=== PATIENT | male | born 1960 | race Hispanic/Latino ===

== ENCOUNTER 2020-12-19 19:20 | Emergency (ER) | payer OTHER ==
[2020-12-19 20:48] LABS: Absolute Lymphocytes (CBC) 1.3 K/uL (0.7-4.9); Basophils % 0.2 % (0-1.3); Hematocrit 43.8 % (39.6-49.0); Lymphocytes % 19.9 % (15.3-44.8); MPV 8.5 fL (7.6-11.3); RBC Red Blood Cell Count 5.02 M/uL (4.33-5.43)
[2020-12-19 20:55] LABS: Protime INR 1.12
[2020-12-19] MEDS ORDERED: NA CHLORIDE 0.9% 1,000 ML ONE (20:59)
[2020-12-19] MEDS ORDERED: ONDANSETRON 4 MG/2 ML VIAL ONE (20:59)
[2020-12-19] MEDS ORDERED: ACETAMINOPHEN 500 MG TAB ONE (20:59)
--- NOTE | 2020-12-19 21:08 | RAD REPORT ---
EXAM DESCRIPTION: RAD - Chest Single View - 12/19/2020 8:58 pm CLINICAL HISTORY: sob, weakness COMPARISON: None TECHNIQUE: AP portable chest image was obtained 12/19/2020 8:58 pm . FINDINGS: Lung volumes are low. Patchy lung parenchymal opacification present medial right base and in the mid and lower left lung field. Heart size and vasculature within normal limits. Trachea is mid line. Bilateral pneumonia is favored and this has a pattern more typical for viral infiltrate. COVID- 19 pneumonia would be a consideration given the clinical environment. No measurable pleural effusion and no pneumothorax. No acute bony abnormality seen. No acute aortic findings suspected. IMPRESSION: Patchy pneumonia changes more pronounced on the left. Viral pneumonia is suspected and COVID-19 pneumonia would be a consideration given the current clinic al environment.
[2020-12-19 21:18] LABS: ALT/SGPT 48 U/L (12-78); AST/SGOT 41 U/L (15-37); Albumin 3.3 g/dL (3.4-5.0); Alkaline Phosphatase 117 U/L (45-117); BUN Blood Urea Nitrogen 9 mg/dL (7-18); Bicarbonate 30 mmol/L (21-32); Bilirubin Direct 0.2 mg/dL (0-0.2); Bilirubin Total 0.4 mg/dL (0.2-1.0); Glucose Level 170 mg/dL (74-106); Magnesium 2.2 mg/dL (1.8-2.4); NT PRO-BNP 260 pg/mL (<125); Protein, Total 8.1 g/dL (6.4-8.2); Sodium Level 134 mmol/L (136-145); Troponin (Emerg Dept Use Only) < 0.02 ng/mL (0.0-0.045)
[2020-12-19] MEDS ORDERED: dexAMETHasone 10 MG/ML VIAL ONE (22:17)
--- NOTE | 2020-12-20 00:03 | ER ---
Nurse's Notes [facility] Name: Simeon Juarez Age: 59 yrs Sex: Male : 1960 Arrival Date: 12/19/2020 Time: 19:21 Bed 7 Private MD: Diagnosis: Coronavirus infection, unspecified Presentation: 12/19 19:21 Chief complaint: Patient states: Coivd + x 2 weeks. Pt reports extreme fatigue x 3 days ss that is worse with exertion. Also c/o intermittent nausea. Coronavirus screen: fatigue, nausea, Client presents with at least one sign or symptom that may indicate coronavirus-19. Standard/surgical mask placed on the client. Ebola Screen: Patient denies exposure to infectious person. Patient denies travel to an Ebola-affected area in the 21 days before illness onset. Initial Sepsis Screen: Does the patient meet any 2 criteria? No. Patient's initial sepsis screen is negative. Does the patient have a suspected source of infection? No. Patient's initial sepsis screen is negative. Risk Assessment: Do you want to hurt yourself or someone else? Patient reports no desire to harm self or others. Onset of symptoms was December 10, 2020. 19:21 Method Of Arrival: EMS: [facility] ss 19:21 Acuity: MED 3 ss Historical: - Allergies: 19:25 No Known Allergies; ss - Home Meds: 19:25 Methadone Oral [Active]; ss - PMHx: 19:25 None; ss - PSHx: 19:25 Appendectomy; ss - Immunization history:: Adult Immunizations unknown. - Social history:: Smoking status: Patient denies any tobacco usage or history of. Screenin:46 Abuse screen: Denies threats or abuse. Denies injuries from another. Nutritional rr5 screening: No deficits noted. Tuberculosis screening: No symptoms or risk factors identified. Fall Risk IV access (20 points). Total Davis Fall Scale indicates No Risk (0-24 pts). Assessment: 20:45 General: Appears in no apparent distress. uncomfortable, Behavior is calm, cooperative, rr5 appropriate for age, Reports feeling ill for fatigue for. Pain: Denies pain. Neuro: Level of Consciousness is awake, alert, obeys commands, Oriented to person, place, time. Cardiovascular: Capillary refill < 3 seconds Patient's skin is warm and dry. Respiratory: Airway is patent Respiratory effort is even, unlabored, Respiratory pattern is regular, symmetrical. GI: No signs and/or symptoms were reported involving the gastrointestinal system. : No signs and/or symptoms were reported regarding the genitourinary system. EENT: No signs and/or symptoms were reported regarding the EENT system. Derm: Skin is intact, is healthy with good turgor, Skin temperature is warm. Musculoskeletal: Circulation, motion, and sensation intact. Capillary refill Reports weakness in body. 22:00 Reassessment: Patient appears in no apparent distress at this time. Patient is alert, rr5 oriented x 3, equal unlabored respirations, skin warm/dry/pink. Patient states feeling better. Patient states symptoms have improved. Vital Signs: 19:21 BP 144 / 94; Pulse 110; Resp 19; Temp 99.5(TE); Pulse Ox 97% on R/A; Weight 95.25 kg; ss Height 6 ft. 10 in. (208.28 cm); Pain 0/10; 22:21 BP 132 / 79; Pulse 76; Resp 16; Pulse Ox 99% ; rr5 23:00 BP 135 / 82; Pulse 81; Resp 17; Pulse Ox 96% on R/A; rv 12/20 00:00 BP 140 / 88; Pulse 85; Resp 18; Pulse Ox 95% on R/A; rv 12/19 19:21 Body Mass Index 21.96 (95.25 kg, 208.28 cm) ED Course: 12/19 19:21 Patient arrived in ED. ss 19:24 Triage completed. ss 19:25 Arm band placed on right wrist. ss 20:00 Patient has correct armband on for positive identification. Placed in gown. Bed in low rr5 position. Call light in reach. school lunch monitor on. Pulse ox on. NIBP on. 20:15 Manny Knapp RN is Primary Nurse. rr5 20:23 Adan Ortiz PA is PHCP. jmm 20:23 Alex Gaona MD is Attending Physician. jmm 20:40 Inserted saline lock: 18 gauge in right antecubital area, using aseptic technique. ds4 Blood collected. 20:57 XRAY Chest (1 view) In Process Unspecified. EDMS 22:45 CT Chest For PE Angio In Process Unspecified. EDMS 12/20 00:13 No provider procedures requiring assistance completed. IV discontinued, intact, rv bleeding controlled, No redness/swelling at site. Pressure dressing applied. Administered Medications: 12/19 20:40 Drug: NS 0.9% 1000 ml Route: IV; Rate: 1 bolus; Site: right antecubital; rr5 12/20 00:15 Follow up: IV Status: Completed infusion; IV Intake: 1000ml rv 12/19 20:45 Drug: Tylenol 1000 mg Route: PO; rr5 12/20 00:15 Follow up: Response: No adverse reaction rv 12/19 20:45 Drug: Zofran (Ondansetron) 4 mg Route: IVP; Site: right antecubital; rr5 12/20 00:15 Follow up: Response: No adverse reaction rv 12/19 22:07 Drug: Decadron - Dexamethasone 10 mg Route: IVP; Site: right antecubital; rr5 12/20 00:15 Follow up: Response: No adverse reaction rv Intake: 00:15 IV: 1000ml; Total: 1000ml. rv Outcome: 00:02 Discharge ordered by MD. avila 00:13 Discharged to home ambulatory. rv 00:13 Condition: good 00:13 Discharge instructions given to patient, Instructed on discharge instructions, follow up and referral plans. medication usage, Demonstrated understanding of instructions, follow-up care, medications, Prescriptions given X 3. 00:15 Patient left the ED. rv Signatures: Dispatcher [employer] EDIA Adan Ortiz PA PA Samra Ann RN RN Blair Enriquez ds4 Jared Borja RN RN Manny Knapp RN RN rr5
--- NOTE | 2020-12-20 00:04 | EDPHYS ---
Physician Documentation [facility] Name: Simeon Juarez Age: 59 yrs Sex: Male : 1960 Arrival Date: 12/19/2020 Time: 19:21 Bed 7 Private MD: ED Physician Alex Gaona HPI: 12/19 20:34 This 59 yrs old Male presents to ER via EMS with complaints of Fatigue, COVID jmm +. 20:34 The patient has shortness of breath at rest. Onset: The symptoms/episode began/occurred jm gradually, 2 week(s) ago. Duration: The symptoms are continuous. The patient's shortness of breath is aggravated by exertion, light activity. Associated signs and symptoms: Pertinent positives: productive cough, Pertinent negatives:. This is a 59 year old male with no chronic medical conditions that presents to the ED with complaints of shortness of breath and increased fatigue today. . Historical: - Allergies: 19:25 No Known Allergies; ss - Home Meds: 19:25 Methadone Oral [Active]; ss - PMHx: 19:25 None; ss - PSHx: 19:25 Appendectomy; ss - Immunization history:: Adult Immunizations unknown. - Social history:: Smoking status: Patient denies any tobacco usage or history of. ROS: 20:34 Constitutional: Positive for body aches, fever. [facility] 20:34 Respiratory: Positive for shortness of breath. 20:34 Neuro: Positive for weakness. 20:34 All other systems are negative. Exam: 20:34 Constitutional: This is a well developed, well nourished patient who is awake, alert, jmm and in no acute distress. Head/Face: atraumatic. Eyes: EOMI, no conjunctival erythema appreciated ENT: Moist Mucus Membranes Neck: Trachea midline, Supple Chest/axilla: Normal chest wall appearance and motion. Cardiovascular: Regular rate and rhythm. No edema appreciated Respiratory: Normal respirations, no respiratory distress appreciated Abdomen/GI: Non distended, soft Back: Normal ROM Skin: General appearance color normal MS/ Extremity: Moves all extremities, no obvious deformities appreciated, no edema noted to the lower extremities Neuro: Awake and alert, normal gait Psych: Behavior is normal, Mood is normal, Patient is cooperative and pleasant 20:43 ECG was reviewed by the Attending Physician. [facility] Vital Signs: 19:21 BP 144 / 94; Pulse 110; Resp 19; Temp 99.5(TE); Pulse Ox 97% on R/A; Weight 95.25 kg; ss Height 6 ft. 10 in. (208.28 cm); Pain 0/10; 22:21 BP 132 / 79; Pulse 76; Resp 16; Pulse Ox 99% ; rr5 23:00 BP 135 / 82; Pulse 81; Resp 17; Pulse Ox 96% on R/A; rv 12/20 00:00 BP 140 / 88; Pulse 85; Resp 18; Pulse Ox 95% on R/A; rv 12/19 19:21 Body Mass Index 21.96 (95.25 kg, 208.28 cm) ss MDM: 12/19 20:34 Patient medically screened. [facility] 23:58 Data reviewed: vital signs, nurses notes. Counseling: I had a detailed discussion with austin the patient and/or guardian regarding: the historical points, exam findings, and any diagnostic results supporting the discharge/admit diagnosis, lab results, radiology results, the need for outpatient follow up, to return to the emergency department if symptoms worsen or persist or if there are any questions or concerns that arise at home. ED course: Patient is alert and non toxic in appearance in the ED. No signs of resp distress. Patient is advised to follow up with pcp and otherwise given strict return precautions. Patient understood and agrees with the plan of care. . 12/19 20:35 Order name: Basic Metabolic Panel [facility] 12/19 20:35 Order name: CBC with Diff [facility] 12/19 20:35 Order name: LFT's [facility] 12/19 20:35 Order name: Magnesium [facility] 12/19 20:35 Order name: NT PRO-BNP [facility] 12/19 20:35 Order name: PT-INR [facility] 12/19 20:35 Order name: Troponin (emerg Dept Use Only); Complete Time: 21:49 [facility] 12/19 20:35 Order name: D-Dimer; Complete Time: 21:12 [facility] 12/19 20:35 Order name: CRP; Complete Time: 21:49 [facility] 12/19 20:36 Order name: Basic Metabolic Panel; Complete Time: 21:49 [facility] 12/19 20:36 Order name: CBC with Automated Diff; Complete Time: 21:12 [facility] 12/19 20:36 Order name: Liver (Hepatic) Function; Complete Time: 21:49 [facility] 12/19 20:36 Order name: Magnesium; Complete Time: 21:49 [facility] 12/19 20:36 Order name: NT PRO-BNP; Complete Time: 21:49 [facility] 12/19 20:35 Order name: XRAY Chest (1 view); Complete Time: 21:12 [facility] 12/19 20:35 Order name: EKG; Complete Time: 20:37 [facility] 12/19 20:35 Order name: Cardiac monitoring; Complete Time: 20:44 [facility] 12/19 20:35 Order name: EKG - Nurse/Tech; Complete Time: 20:44 [facility] 12/19 20:35 Order name: IV Saline Lock; Complete Time: 20:44 [facility] 12/19 20:35 Order name: Labs collected and sent; Complete Time: 20:44 [facility] 12/19 20:35 Order name: O2 Per Protocol; Complete Time: 20:44 [facility] 12/19 20:35 Order name: O2 Sat Monitoring; Complete Time: 20:44 [facility] 12/19 20:36 Order name: Protime (+INR); Complete Time: 21:12 [facility] 12/19 21:52 Order name: CT Chest For PE Angio jmm EC:43 Rate is 97 beats/min. Rhythm is regular. QRS [place] is Normal. MT interval is normal. QRS jmm interval is normal. QT interval is normal. No Q waves. T waves are Normal. No ST changes noted. Reviewed by me. Administered Medications: 20:40 Drug: NS 0.9% 1000 ml Route: IV; Rate: 1 bolus; Site: right antecubital; rr5 12/20 00:15 Follow up: IV Status: Completed infusion; IV Intake: 1000ml rv 12/19 20:45 Drug: Tylenol 1000 mg Route: PO; rr5 12/20 00:15 Follow up: Response: No adverse reaction rv 12/19 20:45 Drug: Zofran (Ondansetron) 4 mg Route: IVP; Site: right antecubital; rr5 12/20 00:15 Follow up: Response: No adverse reaction rv 12/19 22:07 Drug: Decadron - Dexamethasone 10 mg Route: IVP; Site: right antecubital; rr5 12/20 00:15 Follow up: Response: No adverse reaction rv Disposition: 03:50 Co-signature as Attending Physician, Alex Gaona MD. [email or web address] Disposition: 12/20/20 00:02 Discharged to Home. Impression: Coronavirus infection, unspecified. - Condition is Stable. - Discharge Instructions: COVID-19. - Prescriptions for ivermectin 3 mg Oral tablet - take 6 tablet by ORAL route as directed One dose on day one and one dose on day 3; 12 tablet. Prednisone 20 mg Oral Tablet - take 3 tablet by ORAL route once daily for 5 days; 15 tablet. Albuterol Sulfate 90 mcg/actuation - inhale 1-2 puff by INHALATION route every 4-6 hours; 1 Inhaler. Zofran ODT 4 mg Oral tablet,disintegrating - place 1 tablet by TRANSLINGUAL route every 4-6 hours; 20 tablet. - Medication Reconciliation Form, Thank You Letter, Antibiotic Education, Prescription Opioid Use form. - Follow up: Private Physician; When: 2 - 3 days; Reason: Recheck today's complaints, Continuance of care, Re-evaluation by your physician. Signatures: Dispatcher [employer] EDMS Adan Ortiz PA PA Samra Ann RN RN ss Jared Borja RN RN rv Roque, Raymond, RN RN 5 Alex Gaona MD MD 7 Corrections: (The following items were deleted from the chart) 00:15 00:02 12/20/2020 00:02 Discharged to Home. Impression: Coronavirus infection, rv unspecified. Condition is Stable. Forms are Medication Reconciliation Form, Thank You Letter, Antibiotic Education, Prescription Opioid Use. Follow up: Private Physician; When: 2 - 3 days; Reason: Recheck today's complaints, Continuance of care, Re-evaluation by your physician. [facility] 00:15 00:15 12/20/2020 00:02 Discharged to Home. Impression: Coronavirus infection, rv unspecified. Condition is Stable. Discharge Instructions: COVID-19. Prescriptions for ivermectin 3 mg Oral tablet - take 6 tablet by ORAL route as directed One dose on day one and one dose on day 3; 12 tablet, Prednisone 20 mg Oral Tablet - take 3 tablet by ORAL route once daily for 5 days; 15 tablet, Albuterol Sulfate 90 mcg/actuation - inhale 1-2 puff by INHALATION route every 4-6 hours; 1 Inhaler, Zofran ODT 4 mg Oral tablet,disintegrating - place 1 tablet by TRANSLINGUAL route every 4-6 hours; 20 tablet. and Forms are Medication Reconciliation Form, Thank You Letter, Antibiotic Education, Prescription Opioid Use. Follow up: Private Physician; When: 2 - 3 days; Reason: Recheck today's complaints, Continuance of care, Re-evaluation by your physician. rv
[2020-12-20 01:08] VITALS: TEMP 99.5
[2020-12-20 01:12] VITALS: BP 140/88; O2SAT 95
--- NOTE | 2020-12-20 11:27 | RAD REPORT ---
EXAM DESCRIPTION: CT CHEST ANGIOGRAPHY WITH IV CONTRAST on 12/19/2020 9:52 PM FOREST NURSERY SUPERVISOR CLINICAL HISTORY: Sob, elevated d-dimer COMPARISON: None. TECHNIQUE: CT CHEST ANGIOGRAPHY WITH IV CONTRAST on 12/19/2020 9:52 PM FOREST NURSERY SUPERVISOR. MIPS reconstructions were generated. This exam was performed according to our departmental dose-optimization program, which includes autom ated exposure control, adjustment of the mA and/or kV according to patient size and/or use of iterati ve reconstruction technique. MIP images were generated. FINDINGS: Thoracic aorta is normal in course and caliber without aneurysm or dissection. Pulmonary a rteries are adequately opacified without acute or chronic filling defects. The heart is normal in size. There is no pericardial effusion. Intrathoracic lymph nodes are not enla rged. There is no pleural effusion, pleural thickening or pneumothorax. Central airways are patent. There a re mild to moderate mostly posterior mid and lower lung groundglass opacities. There are no acute abnormalities within the limited images of the upper abdomen. There are no acute osseous findings. No suspicious bony lesions. IMPRESSION: No aortic dissection or aneurysm. No pulmonary embolus. Commonly reported imaging features of viral pneumonia are present. Other processes such as influenza pneumonia and organizing pneumonia, as can be seen with drug toxicity and connective tissue disease, can cause similar imaging pattern. PneTyp Electronically signed by: Phu Al MD 12/19/2020 11:05 PM FOREST NURSERY SUPERVISOR Due to temporary technical issues with the PACS/Fluency reporting system, reports are being signed by the in house radiologist without review as a courtesy to ensure prompt reporting. The interpreting r adiologist is fully responsible for the content of the report.
== END 2020-12-20 00:15 | disposition home or self-care (01) ==
LOC: ER 19:20
DX: U07.1 COVID-19 (principal); R53.83 Other fatigue
CPT/HCPCS: 96361; 85025; 80048; 36415; 83735; 85610; 85379; 80076; 84484; 83880; 86140; 71275; 71045; 96375; 96374; 99285; Q9967; J1100; J7030; J2405

== ENCOUNTER 2023-01-03 19:14 | Emergency (ER) | payer OTHER ==
--- OUTSIDE RECORDS SUMMARY | 2023-01-03 19:17 | XMS REPORT | Continuity of Care Document ---
:1960 Author Organization [facility] t Address [address] [place] [address] [address] [place] [address] Care Team Providers Name Role Phone AIDE Attending Clinician Unavailable AIDE Admitting Clinician Unavailable Problems This patient has no known problems. Allergies, Adverse Reactions, Alerts This patient has no known allergies or adverse reactions. Medications This patient has no known medications. Procedures This patient has no known procedures. Encounters Start End Encounter Admission Attending Care Care Encounter Source Date/Time Date/Time Type Type Clinicians Facility Department ID 2022-05-10 2022-05-10 Outpatient CHAIM JASSO [id number] [place] 11:00:00 11:00:00 [id number] Program Results This patient has no known results.
[2023-01-03] MEDS ORDERED: ONDANSETRON 4 MG/2 ML VIAL ONE (20:23)
[2023-01-03] MEDS ORDERED: NA CHLORIDE 0.9% 1,000 ML ONE (20:23)
[2023-01-03] MEDS ORDERED: FAMOTIDINE 20 MG/2 ML VIAL IV ONE (20:31)
[2023-01-03 20:32] LABS: Hematocrit 42.3 % (39.6-49.0); MCV 89.3 fL (80-100); MPV 7.7 fL (7.6-11.3); RBC Red Blood Cell Count 4.74 M/uL (4.33-5.43)
[2023-01-03 20:50] LABS: Albumin 3.6 g/dL (3.4-5.0); Bilirubin Total 0.6 mg/dL (0.2-1.0); Potassium 3.6 mmol/L (3.5-5.1); Protein, Total 7.5 g/dL (6.4-8.2); Troponin High Sensitivity 6.1 pg/mL (<58.9)
[2023-01-03 21:04] LABS: Urine Blood Negative (Negative); Urine Glucose Negative (Negative); Urine Protein Negative (Negative); Urine Specific Gravity <=1.005 (1.005-1.030); Urine pH 5.5 (5.0-7.0)
[2023-01-03 21:20] LABS: Urine Blood Negative (Negative); Urine Glucose Negative (Negative); Urine Protein Negative (Negative); Urine Specific Gravity <=1.005 (1.005-1.030); Urine pH 5.5 (5.0-7.0)
--- NOTE | 2023-01-03 21:36 | RAD REPORT ---
EXAM DESCRIPTION: CT - Abdomen Pelvis W Contrast - 01/03/2023 9:13 pm CLINICAL HISTORY: ABD PAIN COMPARISON: No comparisons TECHNIQUE: Thin cut axial CT imaging of the abdomen and pelvis was performed following intravenous a dministration of 90 mL Isovue 300. Multiplanar reformats were generated and reviewed. All CT scans are performed using dose optimization technique as appropriate and may include automated exposure control or mA/KV adjustment according to patient size. FINDINGS: No suspicious findings in the lung bases. The liver, spleen, adrenal glands, and pancreas show no suspicious findings. Gallbladder is moderatel y distended, without mucosal hyperenhancement, wall thickening, or pericholecystic fluid. The common bile duct is prominent, measuring 1 centimeter in caliber, a nonspecific finding. Symmetric renal function is seen with no hydronephrosis or suspicious renal mass. No dilated bowel loops or bowel wall thickening. No free air, free fluid or inflammatory stranding. N o hernia, mass or bulky lymphadenopathy. The urinary bladder is without significant finding. No suspicious bony findings. IMPRESSION: Moderate gallbladder distention without inflammatory changes on CT. Common bile duct is prominent, measuring 1 centimeter in caliber, a nonspecific finding. Please correlate clinically, and with patient's bilirubin levels. No other acute abnormalities in the abdomen and pelvis.
[2023-01-03] MEDS ORDERED: KETOROLAC 30 MG/ML INJ ONE (21:39)
[2023-01-03 21:42] LABS: Urine Bacteria None Seen /HPF (<20); Urine RBC <5 /HPF (None Seen)
--- NOTE | 2023-01-03 22:42 | RAD REPORT ---
EXAM DESCRIPTION: US - Abdomen Exam Limited - 01/03/2023 10:17 pm CLINICAL HISTORY: NAUSEA / VOMITING COMPARISON: Abdomen Pelvis W Contrast dated 01/03/2023 TECHNIQUE: Sonographic grayscale and color flow images of the right upper quadrant were obtained. FINDINGS: The gallbladder demonstrates moderate distention. No gallstones. No pericholecystic fluid or gallbladder wall thickening. The common bile duct is dilated, measuring 1 centimeter, without evid ence of choledocholithiasis along the visualized segments. The liver demonstrates no findings of intrahepatic biliary dilatation. IMPRESSION: Moderately distended gallbladder, without sonographic findings to suggest acute cholecys titis. No cholelithiasis. Dilated common bile duct, 1 centimeter in caliber.
[2023-01-03 22:53] LABS: SARS-COV-2 RT PCR NEGATIVE (NEGATIVE)
[2023-01-04 00:25] VITALS: TEMP 99.9
[2023-01-04 00:27] VITALS: O2SAT 100
[2023-01-04 00:29] VITALS: BP 124/75
--- NOTE | 2023-01-04 16:21 | EKG ---
Test Date: 2023-01-03 Test Time: 20:28:23 Electronic Components Assembler: LUCHO MEASUREMENT RESULTS: Intervals: Rate: 99 WY: 154 QRSD: 90 QT: 342 QTc: 438 [place]: P: 33 WY: 154 QRS: 25 T: 68 INTERPRETIVE STATEMENTS: Normal sinus rhythm Nonspecific T wave abnormality Abnormal ECG Compared to ECG 08/30/2022 20:50:58 T-wave abnormality now present ST (T wave) deviation no longer present Possible ischemia no longer present Electronically Signed On 01-04-23 16:19:33 CAMPUS RECEPTIONIST by Xavier Costa
--- NOTE | 2023-01-19 15:17 | ER ---
Nurse's Notes [facility] Name: Simeon Juarez Age: 62 yrs Sex: Male : 1960 Arrival Date: 01/03/2023 Time: 19:16 Bed 12 Private MD: Diagnosis: Nausea with vomiting, unspecified;Diarrhea, unspecified Presentation: 01/03 19:15 Chief complaint: EMS states: N/V/D and joint pain started yesterday, last vomited at eh3 noon today, EMS gave 4mg Zofran, 1000mg Tylenol, and 500mL NS en route to hospital. Coronavirus screen: Vaccine status: Patient reports receiving the 2nd dose of the covid vaccine. Ebola Screen: No symptoms or risks identified at this time. Initial Sepsis Screen: Does the patient meet any 2 criteria? HR > 90 bpm. Does the patient have a suspected source of infection? No. Patient's initial sepsis screen is negative. Risk Assessment: Do you want to hurt yourself or someone else? Patient reports no desire to harm self or others. Onset of symptoms was January 04, 2023. 19:15 Method Of Arrival: EMS: [facility] 19:15 Acuity: MED 3 eh3 Triage Assessment: 19:15 General: Appears in no apparent distress. uncomfortable, Behavior is calm, cooperative, eh3 appropriate for age. Pain: Complains of pain in generalized in joints. Historical: - Allergies: 19:56 No Known Allergies; eh3 - Home Meds: 19:56 Methadone Oral [Active]; Lisinopril Oral [Active]; eh3 - PMHx: 19:56 Hypertensive disorder; eh3 - PSHx: 19:56 Appendectomy; eh3 - Immunization history:: Adult Immunizations up to date, Flu vaccine is not up to date. It has been more than one year since last vaccine. - Social history:: Smoking status: unknown. Screenin:15 [facility] ED Fall Risk Assessment (Adult) Score/Fall Risk Level 0 - 2 = Low Risk. Abuse eh3 screen: Denies threats or abuse. Denies injuries from another. Nutritional screening: No deficits noted. Tuberculosis screening: No symptoms or risk factors identified. Assessment: 19:15 Reassessment: No changes from previously documented assessment. See triage assessment. eh3 20:15 Reassessment: Patient appears in no apparent distress at this time. Patient and/or 3 family updated on plan of care and expected duration. Pain level reassessed. Patient is alert, oriented x 3, equal unlabored respirations, skin warm/dry/pink. 21:15 Reassessment: Patient appears in no apparent distress at this time. Patient and/or 3 family updated on plan of care and expected duration. Pain level reassessed. Patient is alert, oriented x 3, equal unlabored respirations, skin warm/dry/pink. 22:15 Reassessment: Patient appears in no apparent distress at this time. Patient and/or 3 family updated on plan of care and expected duration. Pain level reassessed. Patient is alert, oriented x 3, equal unlabored respirations, skin warm/dry/pink. 23:15 Reassessment: Patient appears in no apparent distress at this time. Patient and/or 3 family updated on plan of care and expected duration. Pain level reassessed. Patient is alert, oriented x 3, equal unlabored respirations, skin warm/dry/pink. Patient states feeling better. Vital Signs: 19:15 BP 140 / 90; Pulse 120; Resp 20; Temp 99.9(O); Pulse Ox 99% on R/A; Weight 90.72 kg; 3 Height 5 ft. 11 in. ; 20:15 BP 126 / 70; Pulse 109; Resp 20; Pulse Ox 99% on R/A; 3 21:15 BP 121 / 66; Pulse 101; Resp 18; Pulse Ox 100% on R/A; 3 22:15 BP 124 / 75; Pulse 100; Resp 18; Pulse Ox 100% on R/A; 3 19:15 Body Mass Index 27.89 (90.72 kg, 180.34 cm) [facility] ED Course: 19:15 Arm band placed on. 3 19:15 Patient has correct armband on for positive identification. Bed in low position. Call [facility] light in reach. Side rails up X2. Client placed on continuous cardiac and pulse oximetry monitoring. NIBP monitoring applied. Door closed. Noise minimized. 19:15 Maintain EMS IV. Dressing intact. Good blood return noted. Site clean \T\ dry. Gauge \T\ 3 site: 18g RAC. 19:16 Patient arrived in ED. rv1 19:17 Ignacio Park PA is PHCP. cp 19:17 Ernesto Su MD is Attending Physician. cp 19:53 Yeny Chavez, RN is Primary Nurse. eh3 19:56 Triage completed. eh3 21:14 CT Abd/Pelvis - IV Contrast Only In Process Unspecified. EDMS 21:55 COVID-19/FLU A+B Sent. eh3 22:19 US Abdomen Limited: gallbladder In Process Unspecified. EDMS 23:54 No provider procedures requiring assistance completed. IV discontinued, intact, vc1 bleeding controlled, No redness/swelling at site. Pressure dressing applied. Administered Medications: 20:23 Drug: NS 0.9% IV 1000 ml Route: IV; Rate: 1 bolus; Site: right antecubital; eh3 21:17 Follow up: IV Status: Completed infusion; IV Intake: 1000ml eh3 20:23 Drug: Ondansetron IVP 4 mg Route: IVP; Site: right antecubital; eh3 21:17 Follow up: Response: Nausea is decreased eh3 20:35 Drug: Famotidine IVP 20 mg Route: IVP; Site: right antecubital; eh3 21:17 Follow up: Response: No adverse reaction eh3 21:45 Drug: Ketorolac IVP 15 mg Route: IVP; Site: right antecubital; eh3 22:19 Follow up: Response: Pain is decreased eh3 Medication: 23:54 VIS not applicable for this client. vc1 Intake: 21:17 IV: 1000ml; Total: 1000ml. eh3 Outcome: 23:34 Discharge ordered by MD. cp 23:54 Discharged to home ambulatory. vc1 23:54 Condition: good 23:54 Discharge instructions given to patient, Instructed on discharge instructions, follow up and referral plans. medication usage, Demonstrated understanding of instructions, follow-up care, medications, Prescriptions given X 1. 23:54 Patient left the ED. vc1 Signatures: Dispatcher [employer] EDOH Ignacio Park PA PA cp Imelda Melendez RN RN vc1 Yeny Chavez RN RN eh3 Mckenzie Gonzalez rv1 Corrections: (The following items were deleted from the chart) 19:58 19:56 Immunization history: Adult Immunizations up to date, Flu vaccine is not up to eh3 date. It has been more than one year since last vaccine. eh3 19:58 19:56 Social history: Smoking status: unknown 3 3 21:17 21:16 Famotidine IVP 20 mg IVP in right antecubital 3 3 23:24 23:15 Reassessment: Patient appears in no apparent distress at this time. Patient 3 and/or family updated on plan of care and expected duration. Pain level reassessed. Patient is alert, oriented x 3, equal unlabored respirations, skin warm/dry/pink. [facility]
--- NOTE | 2023-01-19 15:17 | EDPHYS ---
Physician Documentation [facility] Name: Simeon Juarez Age: 62 yrs Sex: Male : 1960 Arrival Date: 01/03/2023 Time: 19:16 Bed 12 Private MD: ED Physician Ernesto Su HPI: 01/03 19:40 This 62 yrs old Male presents to ER via EMS with complaints of cp Nausea/Vomiting/Diarrhea. 19:40 The patient presents to the emergency department with nausea, that is moderate, cp vomiting, that is intermittent, diarrhea, that is intermittent. Onset: The symptoms/episode began/occurred yesterday. Possible causes: unknown. Associated signs and symptoms: Pertinent positives: anorexia, joint pain, body aches, Pertinent negatives: abdominal pain, constipation, fever, GI bleeding, chest pain. Severity of symptoms: in the emergency department the symptoms are unchanged despite home interventions. Historical: - Allergies: 19:56 No Known Allergies; eh3 - Home Meds: 19:56 Methadone Oral [Active]; Lisinopril Oral [Active]; eh3 - PMHx: 19:56 Hypertensive disorder; eh3 - PSHx: 19:56 Appendectomy; eh3 - Immunization history:: Adult Immunizations up to date, Flu vaccine is not up to date. It has been more than one year since last vaccine. - Social history:: Smoking status: unknown. ROS: 19:45 Constitutional: Positive for body aches, chills, poor PO intake, Negative for fever. cp 19:45 Eyes: Negative for injury, pain, redness, and discharge. cp 19:45 ENT: Negative for drainage from ear(s), ear pain, sore throat, difficulty swallowing, difficulty handling secretions. 19:45 Cardiovascular: Negative for chest pain, palpitations. 19:45 Respiratory: Negative for cough, shortness of breath, wheezing. 19:45 Abdomen/GI: Positive for abdominal pain, nausea, vomiting, diarrhea, constipation. 19:45 : Negative for urinary symptoms, testicular pain 19:45 Neuro: Negative for altered mental status, headache, syncope. 19:45 All other systems are negative. Exam: 19:50 Constitutional: The patient appears in no acute distress, alert, awake, cp non-diaphoretic, non-toxic, well developed, well nourished. 19:50 Head/Face: Normocephalic, atraumatic. cp 19:50 Eyes: Periorbital structures: appear normal, Pupils: equal, round, and reactive to light and accomodation, Extraocular movements: intact throughout, Conjunctiva: normal, no exudate, no injection, Sclera: no appreciated abnormality, Lids and lashes: appear normal, bilaterally. 19:50 ENT: External ear(s): are unremarkable, Ear canal(s): are normal, clear, TM's: dullness, bilaterally, Nose: is normal, Mouth: Lips: moist, Oral mucosa: moist, Posterior pharynx: is normal, airway is patent, no erythema, no exudate. 19:50 Neck: ROM/movement: is normal, is supple, without pain, no range of motions limitations, no nuchal rigidity. 19:50 Chest/axilla: Inspection: normal. 19:50 Cardiovascular: Rate: tachycardic, Rhythm: regular. 19:50 Respiratory: the patient does not display signs of respiratory distress, Respirations: normal, no use of accessory muscles, no retractions, labored breathing, is not present, Breath sounds: are clear throughout, no decreased breath sounds, no stridor, no wheezing. 19:50 Abdomen/GI: Inspection: abdomen appears normal, Bowel sounds: active, all quadrants, Palpation: soft, in all quadrants, mild abdominal tenderness, in the epigastric area, right upper quadrant and left upper quadrant, rebound tenderness, is not appreciated, involuntary guarding, is not appreciated. 19:50 Back: CVA tenderness, is absent. 19:50 Neuro: Orientation: to person, place \T\ time. Mentation: is normal, Motor: moves all fours, strength is normal, Sensation: is normal. 20:35 ECG was reviewed by the Attending Physician. cp Vital Signs: 19:15 BP 140 / 90; Pulse 120; Resp 20; Temp 99.9(O); Pulse Ox 99% on R/A; Weight 90.72 kg; eh3 Height 5 ft. 11 in. ; 20:15 BP 126 / 70; Pulse 109; Resp 20; Pulse Ox 99% on R/A; eh3 21:15 BP 121 / 66; Pulse 101; Resp 18; Pulse Ox 100% on R/A; eh3 22:15 BP 124 / 75; Pulse 100; Resp 18; Pulse Ox 100% on R/A; eh3 19:15 Body Mass Index 27.89 (90.72 kg, 180.34 cm) eh3 MDM: 19:21 Patient medically screened. cp 20:00 Differential diagnosis: gastritis, cholecystitis, pancreatitis, diverticulitis, viral cp gastroenteritis, gastroenteritis. 23:33 Data reviewed: vital signs, nurses notes, lab test result(s), EKG, radiologic studies, cp CT scan, plain films. 23:33 Consideration of Admission/Observation Escalation of care including cp admission/observation considered. I considered the following discharge prescriptions or medication management in the emergency department Medications were administered in the Emergency Department. See MAR. Test considered but Not performed: CT: chest. Care significantly affected by the following chronic conditions: Hypertension. Counseling: I had a detailed discussion with the patient and/or guardian regarding: the historical points, exam findings, and any diagnostic results supporting the discharge/admit diagnosis, lab results, radiology results, the need for outpatient follow up, a family practitioner, to return to the emergency department if symptoms worsen or persist or if there are any questions or concerns that arise at home. Response to treatment: the patient's symptoms have markedly improved after treatment, patient is well hydrated. Patient reports nausea markedly improved and is tolerating po fluids. 01/03 19:37 Order name: CBC with Diff; Complete Time: 21:25 cp 01/03 22:13 Interpretation: Normal except: JUNE% 83.8; LYM% 10.0; NEUT A 8.4. cp 01/03 19:37 Order name: CMP; Complete Time: 21:25 cp 01/03 22:14 Interpretation: Normal except: NA 134; GLUC 127; GFR 85; AST 13; GLOB 3.9; A/G 0.9. cp 01/03 19:37 Order name: Lipase; Complete Time: 21:25 cp 01/03 19:37 Order name: Urine Microscopic Only; Complete Time: 22:13 cp 01/03 22:13 Interpretation: Reviewed. cp 01/03 19:37 Order name: Troponin HS; Complete Time: 21:25 cp 01/03 21:05 Order name: Urine Dipstick-Ancillary; Complete Time: 21:25 EDMS 01/03 21:20 Order name: Urine Dipstick-Ancillary; Complete Time: 21:25 EDMS 01/03 21:27 Order name: COVID-19/FLU A+B; Complete Time: 22:55 cp 01/03 20:09 Order name: CT Abd/Pelvis - IV Contrast Only; Complete Time: 21:38 cp 01/03 21:38 Interpretation: Report reviewed. cp 01/03 21:39 Order name: US Abdomen Limited: gallbladder; Complete Time: 22:53 cp 01/03 19:37 Order name: EKG; Complete Time: 19:38 cp 01/03 19:37 Order name: IV Saline Lock; Complete Time: 20:00 cp 01/03 19:37 Order name: Labs collected and sent; Complete Time: 20:23 cp 01/03 19:37 Order name: Urine Dipstick-Ancillary (obtain specimen); Complete Time: 20:23 cp 01/03 19:37 Order name: EKG - Nurse/Tech; Complete Time: 20:23 cp 01/03 21:39 Order name: NPO; Complete Time: 21:41 cp 01/03 23:10 Order name: PO challenge; Complete Time: 23:47 cp EC:35 Rate is 99 beats/min. Rhythm is regular. HI interval is normal. QRS interval is normal. cp QT interval is normal. T waves are Inverted in lead aVR. Interpreted by me. Reviewed by me. Administered Medications: 20:23 Drug: NS 0.9% IV 1000 ml Route: IV; Rate: 1 bolus; Site: right antecubital; eh3 21:17 Follow up: IV Status: Completed infusion; IV Intake: 1000ml eh3 20:23 Drug: Ondansetron IVP 4 mg Route: IVP; Site: right antecubital; eh3 21:17 Follow up: Response: Nausea is decreased eh3 20:35 Drug: Famotidine IVP 20 mg Route: IVP; Site: right antecubital; eh3 21:17 Follow up: Response: No adverse reaction eh3 21:45 Drug: Ketorolac IVP 15 mg Route: IVP; Site: right antecubital; eh3 22:19 Follow up: Response: Pain is decreased eh3 Disposition Summary: 01/03/23 23:34 Discharge Ordered Location: Home cp Problem: new cp Symptoms: have improved cp Condition: Stable cp Diagnosis - Nausea with vomiting, unspecified cp - Diarrhea, unspecified cp Followup: cp - With: Private Physician - When: 2 - 3 days - Reason: Recheck today's complaints Discharge Instructions: - Discharge Summary Sheet cp - Diarrhea, Adult cp - Nausea and Vomiting, Adult cp Forms: - Medication Reconciliation Form cp - Thank You Letter cp - Antibiotic Education cp - Prescription Opioid Use cp Prescriptions: - Zofran 4 mg Oral Tablet - take 1 tablet by ORAL route every 12 hours As needed; 20 tablet; Refills: 0, cp Product Selection Permitted Signatures: Dispatcher [employer] EDMS Ignacio Park PA PA cp Hall, Erin RN RN [facility] Corrections: (The following items were deleted from the chart) :58 19:56 Immunization history: Adult Immunizations up to date, Flu vaccine is not up to [facility] date. It has been more than one year since last vaccine. [facility] 58 19:56 Social history: Smoking status: unknown [place] [id number] 01/04 23:30 03/08 19:40 Associated signs and symptoms: Pertinent positives: anorexia, Pertinent cp negatives: abdominal pain, constipation, fever, GI bleeding, chest pain, cp
== END 2023-01-03 23:54 | disposition home or self-care (01) ==
LOC: ER 19:14
DX: R11.2 Nausea with vomiting, unspecified (principal); R19.7 Diarrhea, unspecified; R10.9 Unspecified abdominal pain; Z20.822 Contact with and (suspected) exposure to COVID-19; I10 Essential (primary) hypertension
CPT/HCPCS: 96361; 93005; 85025; 36415; 84484; 83690; 80053; 0240U; 74177; 76705; 96375; 96374; 99284; Q9967; J2405; J7030; 81003; 81015

== ENCOUNTER 2023-07-16 12:54 | Emergency (ER) | payer OTHER, SELFPAY ==
--- OUTSIDE RECORDS SUMMARY | 2023-07-16 12:56 | XMS REPORT | Continuity of Care Document ---
:1960 Author Organization [facility] t Address [address] [place] [id number] Care Team Providers Name Role Phone AIDE [...] Department ID 2022-05-10 2022-05-10 Outpatient CHAIM JASSO PAANGELINA [id number] [place] 11:00:00 11:00:00 HN [id number] da [facility] Program Results This patient has no known results.
[2023-07-16] MEDS ORDERED: NA CHLORIDE 0.9% 1,000 ML ONE (13:24)
[2023-07-16 13:35] LABS: Absolute Lymphocytes (CBC) 2.4 K/uL (0.7-4.9); Hematocrit 41.5 % (39.6-49.0); Lymphocytes % 19.6 % (15.3-44.8); MCV 89.1 fL (80-100); MPV 8.2 fL (7.6-11.3); Platelets 173 thou/uL (152-406); RBC Red Blood Cell Count 4.66 M/uL (4.33-5.43)
[2023-07-16 13:41] LABS: Barbiturates NEGATIVE (NEGATIVE); Benzodiazepines NEGATIVE (NEGATIVE); Cocaine NEGATIVE (NEGATIVE); METHAMPHETAM NEGATIVE (NEGATIVE); Methadone POSITIVE (NEGATIVE); Opiates NEGATIVE (NEGATIVE); Phencyclidine NEGATIVE (NEGATIVE); THC Cannibis NEGATIVE (NEGATIVE)
[2023-07-16 13:53] LABS: Albumin 3.8 g/dL (3.4-5.0); Bilirubin Direct 0.1 mg/dL (0-0.2); Bilirubin Indirect, Calculated 0.4 mg/dL (0.2-0.8); Bilirubin Total 0.5 mg/dL (0.2-1.0); Magnesium 1.6 mg/dL (1.6-2.4); Potassium 2.9 mEq/L (3.5-5.1); Troponin High Sensitivity 12.1 pg/mL (<58.9)
[2023-07-16] MEDS ORDERED: POTASSIUM 25 MEQ EFFERV TAB ONE (14:35)
[2023-07-16] MEDS ORDERED: KCL 20 MEQ/100 mL IVPB 100 ML IV ONE (14:36)
--- NOTE | 2023-07-16 15:16 | RAD REPORT ---
EXAM DESCRIPTION: RADChest Single View07/16/2023 2:09 pm CLINICAL HISTORY: CHEST PAIN COMPARISON: Chest Single View dated 12/19/2020 TECHNIQUE: Portable AP view of the chest. FINDINGS: The lungs are clear. No pneumothorax or effusion. The cardiomediastinal contours are unre markable. IMPRESSION: No acute cardiopulmonary process.
[2023-07-16] MEDS ORDERED: PROMETHAZINE INJ 25 MG/ML AMP ONE ×2 (16:27→16:28)
[2023-07-16] MEDS ORDERED: NA CHLORIDE 0.9% 500 ML ONE ×2 (16:27→16:28)
[2023-07-16] MEDS ORDERED: ONDANSETRON 4 MG/2 ML VIAL ONE (17:22)
[2023-07-16] MEDS ORDERED: METOPROLOL TAR 50 MG TAB ONE (17:59)
--- NOTE | 2023-07-16 18:25 | EDPHYS ---
Physician Documentation [facility] Name: Simeon Juarez Age: 62 yrs Sex: Male : 1960 Arrival Date: 07/16/2023 Time: 12:54 Bed 4 Private MD: ED Physician Zoltan Agudelo HPI: 07/16 14:57 This 62 yrs old Male presents to ER via Wheelchair with complaints of snw Dizziness. 14:57 The patient presents with dizziness, generalized weakness. Onset: The symptoms/episode snw began/occurred suddenly. Context: pt on Methadone, last dose yesterday at 10am. "cravings" this am so pt took medications that he had at home. 20 minutes later, pt is hyperventilating, nauseated, feeling "really bad". Patient's baseline: Neuro: alert and fully oriented, Motor: no deficits, Ambulation: walks without assistance, Speech: normal. It is unknown whether or not the patient has had similar symptoms in the past. next Methadone scheduled for . Historical: - Allergies: 13:11 No Known Allergies; me1 - Home Meds: 13:12 lisinopril Oral [Active]; Methadone Oral [Active]; me1 - PMHx: 13:11 Hypertensive disorder; substance abuse; me1 - PSHx: 13:11 Appendectomy; me1 - Immunization history:: Adult Immunizations unknown. - Social history:: Smoking status: Patient denies any tobacco usage or history of. ROS: 14:56 Eyes: Negative for injury, pain, redness, and discharge, ENT: Negative for injury, snw pain, and discharge, Neck: Negative for injury, pain, and swelling, Cardiovascular: Negative for chest pain, palpitations, and edema, 14:56 Back: Negative for injury and pain, : Negative for injury, bleeding, discharge, and swelling, MS/Extremity: Negative for injury and deformity, Skin: Negative for injury, rash, and discoloration, Neuro: Negative for headache, weakness, numbness, tingling, and seizure, 14:56 Constitutional: Positive for body aches, malaise, poor PO intake, 14:56 Respiratory: Positive for shortness of breath, 14:56 Abdomen/GI: Positive for nausea and vomiting, 14:56 Psych: Positive for anxiety, Exam: 14:55 Head/Face: Normocephalic, atraumatic. Eyes: Pupils equal round and reactive to light, snw extra-ocular motions intact. Lids and lashes normal. Conjunctiva and sclera are non-icteric and not injected. Cornea within normal limits. Periorbital areas with no swelling, redness, or edema. ENT: Nares patent. No nasal discharge, no septal abnormalities noted. Tympanic membranes are normal and external auditory canals are clear. Oropharynx with no redness, swelling, or masses, exudates, or evidence of obstruction, uvula midline. Mucous membranes moist. Neck: Trachea midline, no thyromegaly or masses palpated, and no cervical lymphadenopathy. Supple, full range of motion without nuchal rigidity, or vertebral point tenderness. No Meningismus. Chest/axilla: Normal chest wall appearance and motion. Nontender with no deformity. No lesions are appreciated. 14:55 Abdomen/GI: Soft, non-tender, with normal bowel sounds. No distension or tympany. No guarding or rebound. No evidence of tenderness throughout. Back: No spinal tenderness. No costovertebral tenderness. Full range of motion. Skin: Warm, dry with normal turgor. Normal color with no rashes, no lesions, and no evidence of cellulitis. MS/ Extremity: Pulses equal, no cyanosis. Neurovascular intact. Full, normal range of motion. Neuro: Awake and alert, GCS 15, oriented to person, place, time, and situation. Cranial nerves II-XII grossly intact. Motor strength 5/5 in all extremities. Sensory grossly intact. Cerebellar exam normal. Normal gait. 14:55 Constitutional: The patient appears alert, anxious, restless, uncomfortable, 14:55 Cardiovascular: Rate: tachycardic, Rhythm: regular, Heart sounds: normal, 14:55 Respiratory: the patient does not display signs of respiratory distress, Respirations: shallow respirations, tachypnea, Breath sounds: are clear throughout, 14:55 Psych: Behavior/mood is anxious, Oriented to person, place, time, Vital Signs: 13:09 BP 171 / 90; Pulse 130; Resp 24; Temp 98.4(O); Pulse Ox 100% on R/A; Weight 90.72 kg; me1 Height 6 ft. 0 in. ; 13:51 BP 135 / 105; Pulse 107; Resp 18; Pulse Ox 100% on R/A; ld1 14:40 BP 147 / 107; Pulse 106; Resp 18; Pulse Ox 100% ; ko1 16:23 BP 188 / 106; Pulse 93; Resp 20; Pulse Ox 100% ; ko1 16:40 BP 156 / 80; Pulse 99; Resp 16; Pulse Ox 98% ; ko1 17:25 BP 176 / 111 LA Supine (auto/reg); Pulse 101; Resp 20; Pulse Ox 100% ; ko1 17:26 BP 180 / 120 LA Sitting (man/reg); Pulse 101; Resp 18; Pulse Ox 99% ; ko1 17:27 BP 182 / 109 LA Standing (auto/reg); Pulse 86; Resp 18; Pulse Ox 99% ; ko1 18:06 BP 160 / 100; Pulse 95; Resp 18; Pulse Ox 99% on R/A; ld1 13:09 Body Mass Index 27.12 (90.72 kg, 182.88 cm) me1 MDM: 13:10 Patient medically screened. snw 15:01 Differential diagnosis: cardiac arrhythmia, drug withdrawal. hyperventilation, . Data snw reviewed: vital signs, nurses notes. I considered the following discharge prescriptions or medication management in the emergency department Medications were administered in the Emergency Department. See MAR. Counseling: I had a detailed discussion with the patient and/or guardian regarding the historical points, exam findings, and any diagnostic results supporting the discharge/admit diagnosis, the presence of at least one elevated blood pressure reading (>120/80) during this emergency department visit, radiology results, the need for outpatient follow up, to return to the emergency department if symptoms worsen or persist or if there are any questions or concerns that arise at home. Response to treatment: the patient's symptoms have mildly improved after treatment. 15:29 Awaiting: fluid infusion, potassium infusion, plan to obtain orthostatic vitals and snw release pt to f/u pain management for substance abuse and self medicating. Special discussion: Based on the history and exam findings, there is no indication for further emergent testing or inpatient evaluation. I discussed with the patient/guardian the need to see the painter chassis for further evaluation of the symptoms. I discussed with the patient/guardian the need to see the primary care provider for further evaluation of the symptoms. 07/16 13:09 Order name: Basic Metabolic Panel; Complete Time: 14:00 snw 07/16 13:09 Order name: CBC with Diff; Complete Time: 13:43 snw 07/16 13:09 Order name: LFT's; Complete Time: 14:00 snw 07/16 13:09 Order name: Magnesium; Complete Time: 14:01 snw 07/16 13:09 Order name: NT PRO-BNP; Complete Time: 14:00 snw 07/16 13:09 Order name: PT-INR; Complete Time: 13:36 snw 07/16 13:09 Order name: Troponin HS; Complete Time: 14:01 snw 07/16 13:09 Order name: UDS; Complete Time: 13:43 snw 07/16 13:09 Order name: XRAY Chest (1 view); Complete Time: 15:20 snw 07/16 13:01 Order name: EKG; Complete Time: 13:01 snw 07/16 13:01 Order name: EKG - Nurse/Tech; Complete Time: 13:25 snw 07/16 13:09 Order name: Cardiac monitoring; Complete Time: 13:14 w 07/16 13:09 Order name: IV Saline Lock; Complete Time: 13:24 snw 07/16 13:09 Order name: Labs collected and sent; Complete Time: 13:24 snw 07/16 13:09 Order name: O2 Per Protocol; Complete Time: 13:14 w 07/16 13:09 Order name: O2 Sat Monitoring; Complete Time: 13:14 snw 07/16 15:30 Order name: VS Recheck; Complete Time: 16:23 snw 07/16 16:54 Order name: Orthostatics; Complete Time: 17:31 snw 07/16 17:51 Order name: Misc. Order: recheck bp 15min post medicatons; Complete Time: 18:07 snw EC:25 Rate is 100 beats/min. Rhythm is regular. QRS [place] is Normal. [place] interval is normal. snw QRS interval is normal. Clinical impression: NSR w/ Non-specific ST/T Changes. Administered Medications: 13:25 Drug: NS 0.9% IV 1000 ml IV at 1 bolus Per protocol; 1000 mL bolus Route: IV; Rate: 1 cp4 bolus; Site: right antecubital; 18:58 Follow up: Response: No adverse reaction; IV Status: Completed infusion; IV Intake: db 1000ml 14:30 Drug: Potassium PO Effervescent Tablet 50 mEq PO once; dissolve in 4 ounces of water or ko1 juice Route: PO; 18:58 Follow up: Response: No adverse reaction db 14:30 Drug: Potassium Chloride IV 20 mEq IV at calculated rate once; administer over 1-2 ko1 hours Route: IV; Rate: calculated rate; Site: right antecubital; 18:58 Follow up: Response: No adverse reaction; IV Status: Completed infusion; IV Intake: db 100ml 16:23 Drug: Promethazine IVP 25 mg IVP once; in 500ml NS Route: IVP; Site: right antecubital; ld1 18:58 Follow up: Response: No adverse reaction db 16:23 Drug: NS 0.9% IV 500 ml IV at bolus once Route: IV; Rate: bolus; Site: right ld1 antecubital; 18:57 Follow up: Response: No adverse reaction; IV Status: Completed infusion db 17:15 Drug: Ondansetron IVP 4 mg IVP once; over 2 minutes Route: IVP; Site: right antecubital;ld1 18:57 Follow up: Response: No adverse reaction db 17:50 Drug: Metoprolol PO 50 mg PO once Route: PO; ko1 18:57 Follow up: Response: No adverse reaction db Disposition: 13:41 Co-signature as Attending Physician, Zoltan ANTOINE was immediately available on-site ms3 in the Emergency Department for consultation in the care of the patient. Disposition Summary: 07/16/23 18:24 Discharge Ordered Notes: Location: Home snw Condition: Stable snw Diagnosis - Opioid use, unspecified with withdrawal - 2nd to unsubscribed Suboxone use snw - Unspecified adverse effect of drug or medicament snw - Hypokalemia snw Followup: snw - With: Emergency Department - When: As needed - Reason: Worsening of condition Followup: snw - With: Private Physician - When: Tomorrow - Reason: Recheck today's complaints, Continuance of care, Re-evaluation by your physician Discharge Instructions: - Discharge Summary Sheet snw - Potassium Content of Foods snw - Opioid Withdrawal snw - Methamphetamines Use Disorder snw - Opioid Use Disorder snw - Hypokalemia snw - Warning Signs of Opioid Misuse snw Forms: - Medication Reconciliation Form snw - Thank You Letter snw - Antibiotic Education snw - Prescription Opioid Use snw - Patient Portal Instructions snw - Leadership Thank You Letter snw Prescriptions: - promethazine 25 mg Oral Tablet - take 1 tablet by ORAL route every 6 hours As needed; 20 tablet; Refills: 0, snw Product Selection Permitted Signatures: Dispatcher [employer] EDMS Sylwia Saravia, ASSISTANT ACTIVITIES DIRECTOR-C ASSISTANT ACTIVITIES DIRECTOR-Csnw Rome Joaquin MD MD cp3 Zoltan Agudelo DO DO ms3 Nina Agudelo RN RN ld1 Velvet Manzanares RN RN ko1 Radha Caro RN RN me1 Unique Javier cp4 Alma Burnett RN db
--- NOTE | 2023-07-16 18:25 | ER ---
Nurse's Notes [facility] Name: Simeon Juarez Age: 62 yrs Sex: Male : 1960 Arrival Date: 07/16/2023 Time: 12:54 Bed 4 Private MD: Diagnosis: Opioid use, unspecified with withdrawal-2nd to unsubscribed Suboxone use;Unspecified adverse effect of drug or medicament;Hypokalemia Presentation: 07/16 13:09 Chief complaint: Patient states: reports being out of methadone so he took me1 buprinorphine today about 10 am and now he is dizzy, arms and legs are numb, "doesn't feel good.". Coronavirus screen: Vaccine status: Patient reports being unvaccinated. Ebola Screen: No symptoms or risks identified at this time. Initial Sepsis Screen: Does the patient meet any 2 criteria? No. Patient's initial sepsis screen is negative. Does the patient have a suspected source of infection? No. Patient's initial sepsis screen is negative. Risk Assessment: Do you want to hurt yourself or someone else? Patient reports no desire to harm self or others. Onset of symptoms was July 16, 2023. 13:09 Method Of Arrival: Wheelchair me1 13:09 Acuity: MED 3 me1 Triage Assessment: 13:12 General: Appears distressed, well groomed, well developed, well nourished, Behavior is me1 cooperative, listless, quiet, Reports dizziness and numbness to arms and legs. Pain: Denies pain. Historical: - Allergies: 13:11 No Known Allergies; me1 - Home Meds: 13:12 lisinopril Oral [Active]; Methadone Oral [Active]; me1 - PMHx: 13:11 Hypertensive disorder; substance abuse; me1 - PSHx: 13:11 Appendectomy; me1 - Immunization history:: Adult Immunizations unknown. - Social history:: Smoking status: Patient denies any tobacco usage or history of. Screenin:29 [facility] ED Fall Risk Assessment (Adult) History of falling in the last 3 months, cp4 including since admission No falls in past 3 months (0 pts) Confusion or Disorientation No (0 pts) Intoxicated or Sedated No (0 pts) Impaired Gait No (0 pts) Mobility Assist Device Used No (0 pt) Altered Elimination No (0 pt) Score/Fall Risk Level 0 - 2 = Low Risk. Abuse screen: Denies threats or abuse. Nutritional screening: No deficits noted. Tuberculosis screening: No symptoms or risk factors identified. Assessment: 13:29 General: Appears in no apparent distress. Pain: Denies pain. Neuro: No deficits noted. cp4 Cardiovascular: No deficits noted. Respiratory: No deficits noted. GI: No deficits noted. : No deficits noted. EENT: No deficits noted. Derm: No deficits noted. Musculoskeletal: No deficits noted. Vital Signs: 13:09 BP 171 / 90; Pulse 130; Resp 24; Temp 98.4(O); Pulse Ox 100% on R/A; Weight 90.72 kg; me1 Height 6 ft. 0 in. ; 13:51 BP 135 / 105; Pulse 107; Resp 18; Pulse Ox 100% on R/A; ld1 14:40 BP 147 / 107; Pulse 106; Resp 18; Pulse Ox 100% ; ko1 16:23 BP 188 / 106; Pulse 93; Resp 20; Pulse Ox 100% ; ko1 16:40 BP 156 / 80; Pulse 99; Resp 16; Pulse Ox 98% ; ko1 17:25 BP 176 / 111 LA Supine (auto/reg); Pulse 101; Resp 20; Pulse Ox 100% ; ko1 17:26 BP 180 / 120 LA Sitting (man/reg); Pulse 101; Resp 18; Pulse Ox 99% ; ko1 17:27 BP 182 / 109 LA Standing (auto/reg); Pulse 86; Resp 18; Pulse Ox 99% ; ko1 18:06 BP 160 / 100; Pulse 95; Resp 18; Pulse Ox 99% on R/A; ld1 13:09 Body Mass Index 27.12 (90.72 kg, 182.88 cm) me1 ED Course: 12:55 Patient arrived in ED. rg4 12:57 Sylwia Saravia FNP-C is PHCP. snw 12:57 Zoltan Agudelo DO is Attending Physician. snw 13:11 Triage completed. me1 13:12 Arm band placed on Patient placed in waiting room. me1 13:24 Basic Metabolic Panel Sent. cp4 13:24 CBC with Diff Sent. cp4 13:24 LFT's Sent. cp4 13:24 Magnesium Sent. cp4 13:24 NT PRO-BNP Sent. cp4 13:24 PT-INR Sent. cp4 13:24 Troponin HS Sent. cp4 13:25 Inserted saline lock: 20 gauge in right antecubital area, using aseptic technique. cp4 Blood collected. 13:25 UDS Sent. cp4 13:26 Velvet Manzanares, RN is Primary Nurse. ko1 13:29 Bed in low position. Call light in reach. Side rails up X2. cp4 13:30 Client placed on continuous cardiac and pulse oximetry monitoring. NIBP monitoring ko1 applied. library monitor on. Door closed. Noise minimized. Lights dimmed. Warm blanket given. 14:11 XRAY Chest (1 view) In Process Unspecified. EDMS 18:58 Provided Education on: DISCHARGE. db 18:58 No provider procedures requiring assistance completed. IV discontinued, intact, db bleeding controlled, No redness/swelling at site. Administered Medications: 13:25 Drug: NS 0.9% IV 1000 ml IV at 1 bolus Per protocol; 1000 mL bolus Route: IV; Rate: 1 cp4 bolus; Site: right antecubital; 18:58 Follow up: Response: No adverse reaction; IV Status: Completed infusion; IV Intake: db 1000ml 14:30 Drug: Potassium PO Effervescent Tablet 50 mEq PO once; dissolve in 4 ounces of water or ko1 juice Route: PO; 18:58 Follow up: Response: No adverse reaction db 14:30 Drug: Potassium Chloride IV 20 mEq IV at calculated rate once; administer over 1-2 ko1 hours Route: IV; Rate: calculated rate; Site: right antecubital; 18:58 Follow up: Response: No adverse reaction; IV Status: Completed infusion; IV Intake: db 100ml 16:23 Drug: Promethazine IVP 25 mg IVP once; in 500ml NS Route: IVP; Site: right antecubital; ld1 18:58 Follow up: Response: No adverse reaction db 16:23 Drug: NS 0.9% IV 500 ml IV at bolus once Route: IV; Rate: bolus; Site: right ld1 antecubital; 18:57 Follow up: Response: No adverse reaction; IV Status: Completed infusion db 17:15 Drug: Ondansetron IVP 4 mg IVP once; over 2 minutes Route: IVP; Site: right antecubital;ld1 18:57 Follow up: Response: No adverse reaction db 17:50 Drug: Metoprolol PO 50 mg PO once Route: PO; ko1 18:57 Follow up: Response: No adverse reaction db Medication: 13:29 VIS not applicable for this client. cp4 Intake: 18:58 IV: 100ml; Total: 100ml. db 18:58 IV: 1000ml; Total: 1100ml. db Outcome: 18:24 Discharge ordered by . snw 18:58 Discharged to home via wheelchair, with family, db 18:58 Condition: stable 18:58 Discharge instructions given to patient, family, Instructed on discharge instructions, follow up and referral plans. Prescriptions given X 1, 18:59 Patient left the ED. db Signatures: Dispatcher [employer] Sylwia Verdugo, FIRE TENDER-C FIRE TENDER-Marlene Worthy rg4 Nina Agudelo RN RN ld1 Velvet Manzanares RN RN ko1 Alma Burnett RN RN db Radha Caro, RN RN me1 Unique Javier cp4
[2023-07-16 19:04] VITALS: TEMP 98.4
[2023-07-16 19:14] VITALS: O2SAT 99
[2023-07-16 19:17] VITALS: BP 160/100
--- NOTE | 2023-07-18 14:40 | EKG ---
Test Date: 2023-07-16 Test Time: 13:23:03 Shale Planer Operator: SOFIYA MEASUREMENT RESULTS: Intervals: Rate: 100 SD: 174 QRSD: 94 QT: 354 QTc: 456 [place]: P: 47 SD: 174 QRS: 52 T: -19 INTERPRETIVE STATEMENTS: Normal sinus rhythm ST & T wave abnormality, consider inferior ischemia Abnormal ECG Compared to ECG 01/03/2023 20:28:23 ST (T wave) deviation now present Possible ischemia now present T-wave abnormality no longer present Electronically Signed On 07-18-23 14:33:53 CDT by Xavier Costa
== END 2023-07-16 18:59 | disposition home or self-care (01) ==
LOC: ER 12:54
DX: F11.93 Opioid use, unspecified with withdrawal (principal); E87.6 Hypokalemia; T40.2X5A Adverse effect of other opioids, initial encounter
CPT/HCPCS: 36415; 71045; 80048; 80076; 80307; 83735; 83880; 84484; 85025; 85610; 93005; 96361; 96365; 96366; 96375; 99285; J2405; J2550; J3480; J7030; J7040

== ENCOUNTER 2024-05-27 09:50 | Emergency (ER) | payer OTHER ==
--- OUTSIDE RECORDS SUMMARY | 2024-05-27 09:53 | XMS REPORT | Continuity of Care Document ---
Author Name Unknown Address [address] [place] [address] [employer] Address [address] [place] [id number] Care Team Providers Care Licensed Psychologist Name Role Phone AIDE Attending Clinician Unavailable AIDE Admitting Clinician Unavailable Encounters Start Date/Time End Date/Time Encounter Type Admission Type Attending Clinicians Care Facility Care Department Encounter ID Source 2022-05-10 11:00:00 2022-05-10 11:00:00 Outpatient [facility] [id number] Mel[address] sparrow [facility] Program
--- NOTE | 2024-05-27 11:00 | RAD REPORT ---
EXAM DESCRIPTION: RAD - Foot Right 3 View - 05/27/2024 10:28 am CLINICAL HISTORY: PAIN COMPARISON: No comparisons FINDINGS: There is a very large amount of calcification distal Achilles tendon with adjacent soft ti ssue thickening. Small posterior and plantar calcaneal spurs. No fracture or dislocation seen.
[2024-05-27] MEDS ORDERED: IBUPROFEN 200 MG TAB PO ONE (11:36)
--- NOTE | 2024-05-27 14:40 | EDPHYS ---
Physician Documentation [facility] Name: Simeon Juarez Age: 63 yrs Sex: Male : 1960 Arrival Date: 05/27/2024 Time: 09:50 Bed 10 Private MD: ED Physician Ignacio Velazquez HPI: 05/27 14:34 This 63 yrs old Male presents to ER via Ambulatory with complaints of Fall mervin Injury, Foot Injury. 14:34 Details of fall: The patient fell from a height, from a ladder, approximately 3 feet. mervin Onset: The symptoms/episode began/occurred 1 day(s) ago. Associated injuries: The patient sustained lateral side of right heel, right Achilles and medial aspect of right heel, decreased range of motion, painful injury, swelling. Severity of symptoms: At their worst the symptoms were moderate, severe, in the emergency department the symptoms are unchanged. The patient has experienced a previous episode, approximately 2 months ago, but today's symptoms are worse. Historical: - Allergies: 10:01 No Known Allergies; ap3 - Home Meds: 10:01 Methadone Oral [Active]; ap3 - PMHx: 10:01 Hypertensive disorder; Substance Abuse; ap3 - PSHx: 10:01 Appendectomy; ap3 - Infectious Disease History:: Denies. - Social history:: Smoking status: Patient denies any tobacco usage or history of. - Family history:: not pertinent. ROS: 14:34 Constitutional: Negative for fever, chills, and weight loss, Eyes: Negative for injury, mervin pain, redness, and discharge, ENT: Negative for injury, pain, and discharge, Neck: Negative for injury, pain, and swelling, Cardiovascular: Negative for chest pain, palpitations, and edema, Respiratory: Negative for shortness of breath, cough, wheezing, and pleuritic chest pain, Abdomen/GI: Negative for abdominal pain, nausea, vomiting, diarrhea, and constipation, Back: Negative for injury and pain, : Negative for injury, bleeding, discharge, and swelling, Skin: Negative for injury, rash, and discoloration, Neuro: Negative for headache, weakness, numbness, tingling, and seizure, Psych: Negative for depression, anxiety, suicide ideation, homicidal ideation, and hallucinations, Allergy/Immunology: Negative for hives, rash, and allergies, Endocrine: Negative for neck swelling, polydipsia, polyuria, polyphagia, and marked weight changes, Hematologic/Lymphatic: Negative for swollen nodes, abnormal bleeding, and unusual bruising, 14:34 MS/extremity: Positive for decreased range of motion, pain, swelling, tenderness, of the lateral side of right heel, right Achilles and medial aspect of right heel, Exam: 14:34 Constitutional: This is a well developed, well nourished patient who is awake, alert, mervin and in no acute distress. Head/Face: Normocephalic, atraumatic. Eyes: Pupils equal round and reactive to light, extra-ocular motions intact. Lids and lashes normal. Conjunctiva and sclera are non-icteric and not injected. Cornea within normal limits. Periorbital areas with no swelling, redness, or edema. ENT: Nares patent. No nasal discharge, no septal abnormalities noted. Tympanic membranes are normal and external auditory canals are clear. Oropharynx with no redness, swelling, or masses, exudates, or evidence of obstruction, uvula midline. Mucous membranes moist. Neck: Trachea midline, no thyromegaly or masses palpated, and no cervical lymphadenopathy. Supple, full range of motion without nuchal rigidity, or vertebral point tenderness. No Meningismus. Chest/axilla: Normal chest wall appearance and motion. Nontender with no deformity. No lesions are appreciated. Cardiovascular: Regular rate and rhythm with a normal S1 and S2. No gallops, murmurs, or rubs. Normal PMI, no JVD. No pulse deficits. Respiratory: Lungs have equal breath sounds bilaterally, clear to auscultation and percussion. No rales, rhonchi or wheezes noted. No increased work of breathing, no retractions or nasal flaring. Abdomen/GI: Soft, non-tender, with normal bowel sounds. No distension or tympany. No guarding or rebound. No evidence of tenderness throughout. Back: No spinal tenderness. No costovertebral tenderness. Full range of motion. Male : Normal genitalia with no discharge or lesions. Skin: Warm, dry with normal turgor. Normal color with no rashes, no lesions, and no evidence of cellulitis. Neuro: Awake and alert, GCS 15, oriented to person, place, time, and situation. Cranial nerves II-XII grossly intact. Motor strength 5/5 in all extremities. Sensory grossly intact. Cerebellar exam normal. Normal gait. Psych: Awake, alert, with orientation to person, place and time. Behavior, mood, and affect are within normal limits. 14:34 Musculoskeletal/extremity: ROM: limited active range of motion due to pain, limited passive range of motion due to pain, Circulation is intact in all extremities. Sensation intact. Compartment Syndrome exam of affected extremity: is normal. Weight bearing: is unable to bear weight, Tendon exam: postive for pain and deformity at right achilles insertion, Vital Signs: 09:59 BP 178 / 98; Pulse 90; Resp 17; Temp 98.1; Pulse Ox 99% ; Weight 97.52 kg; Height 6 ft. ap3 0 in. ; Pain 8/10; 15:08 BP 162 / 89; Pulse 64; Resp 16; Temp 98.4; Pulse Ox 98% on R/A; me1 09:59 Body Mass Index 29.16 (97.52 kg, 182.88 cm) ap3 09:59 Pain Scale: Adult ap3 MDM: 10:05 Patient medically screened. [facility] 14:37 Differential diagnosis: contusion, fracture, sprain, strain. Data reviewed: vital [facility] signs, nurses notes, radiologic studies, plain films. Consideration of Admission/Observation Escalation of care including admission/observation considered. I considered the following discharge prescriptions or medication management in the emergency department Medications were administered in the Emergency Department. See MAR. Independent interpretation of the following test(s) in the Emergency Department X-Ray: My interpretation is right foot. Test considered but Not performed: Labs: no labs. Care significantly affected by the following chronic conditions: Hypertension. 05/27 10:05 Order name: XRAY Foot RIGHT 3 View; Complete Time: 14:11 ap3 05/27 10:07 Order name: Ice pack; Complete Time: 11:30 mervin 05/27 14:33 Order name: Crutches; Complete Time: 14:48 mervin 05/27 14:33 Order name: Splint - Ankle: Posterior: well padded; Complete Time: 15:00 mervin Administered Medications: 11:46 Drug: Ibuprofen PO 600 mg PO once Route: PO; kc6 13:29 Follow up: Response: No adverse reaction; Pain is decreased me1 14:55 Drug: HYDROmorphone IM 2 mg IM once Route: IM; Site: right gluteus; me1 15:00 Follow up: Response: No adverse reaction; Pain is decreased me1 14:55 Drug: Promethazine IM 25 mg IM once Route: IM; Site: left gluteus; me1 14:59 Follow up: Response: No adverse reaction; Nausea is decreased me1 Disposition Summary: 05/27/24 14:40 Discharge Ordered Notes: Location: Home mervin Problem: new mervin Symptoms: have improved mervin Condition: Stable mervin Diagnosis - Pain in right foot - achilles insertion, calcification, partial tear mervin Followup: mervin - With: Private Physician - When: 2 - 3 days - Reason: Recheck today's complaints, Continuance of care, Re-evaluation by your physician Followup: mervin - With: Sam Garber MD - When: 1 - 2 days - Reason: Recheck today's complaints, Re-evaluation by your physician Discharge Instructions: - Discharge Summary Sheet mervin - Achilles Tendinitis mervin - Achilles Tendon Tear Repair mervin - Foot Pain mervin Forms: - Medication Reconciliation Form mervin - Antibiotic Education mervin - Prescription Opioid Use mervin - Patient Portal Instructions mervin - Leadership Thank You Letter [facility] Prescriptions: - acetaminophen-codeine 300-30 mg Oral tablet - take 2 tablet ORAL route every 6 hours as needed for pain; 24 tablet; Refills: mervin 0, Product Selection Permitted - Diclofenac Sodium 75 mg Oral Tablet Sustained Release - take 1 tablet ORAL route 2 times per day; 30 tablet; Refills: 0, Product mervin Selection Permitted Signatures: Dispatcher [employer] Ignacio Cates MD MD cha Prokisch, Amanda, RN RN ap3 Ara Garner RN RN kc6 Radha Caro RN RN me1
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
[2024-05-27] MEDS ORDERED: PROMETHAZINE INJ 25 MG/ML AMP ONE (14:46)
[2024-05-27] MEDS ORDERED: HYDROMORPHONE HCL 2 MG/ML inj ONE (14:46)
[2024-05-27 15:45] VITALS: BP 162/89; TEMP 98.4; O2SAT 98
== END 2024-05-27 15:15 | disposition home or self-care (01) ==
LOC: ER 09:50
DX: S86.011A Strain of right Achilles tendon, initial encounter (principal); M76.60 Achilles tendinitis, unspecified leg; M61.471 Other calcification of muscle, right ankle and foot
CPT/HCPCS: 73630; J2550; J1170; 96372; 99284

== ENCOUNTER 2025-01-13 17:35 | Emergency (ER) | payer OTHER ==
--- OUTSIDE RECORDS SUMMARY | 2025-01-13 17:38 | XMS REPORT | Continuity of Care Document ---
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 ON 9 [id number] 2023 00:00:00 Problems Condition Name Condition Details Condition Category Status Onset Date Resolution Date Last Treatment Date Treating Clinician Comments Source Hypertensi on Hypertensi on Disease Active 07-04 00:00: 00 Shreya sofia Hyperlipid emia Hyperlipid emia Disease Active 07-04 00:00: 00 Shreya sofia Social History Social Habit Start Date Stop Date Quantity Comments Source Sexual orientation Yo Patel - External Alcoholic beverage intake 2024-07-16 00:00:00 2024-07-16 00:00:00 Ex-drinker (finding) Shreya Patel - External History of Social function 2024-07-15 00:00:00 2024-07-15 00:00:00 Shreya Patel - External Tobacco use and exposure 2024-07-04 00:00:00 2024-07-04 00:00:00 Smokeless tobacco non-user Shreya Patel - External Sex 2022-07-26 21:11:19 2022-07-26 21:11:19 Male (finding) Shreya Patel - External Sex [birth year] at 1960 00:00:00 1960 00:00:00 Shreya Patel - External Smoking Status Start Date Stop Date Source Never smoked tobacco Shreya Patel - External Medications Ordered Medication Name Filled Medication Name Start Date Stop Date Current Medication? Ordering Clinician Indication Dosage Frequency Signature (SIG) Comments Components Source Amlodipine Besylate (Norvasc) 10 MG oral Tablet 07-04 00:00: 00 Yes [id number] 10mg QD Take 1 tablet (10 mg total) by mouth daily. Shreya Patel - Externa l Vital Signs Vital Name Observation Time Observation Value Comments S ource Systolic blood pressure 2024-07-15 14:03:00 180 mm[Hg] Shreya Newmano ld - External Diastolic blood pressure 2024-07-15 14:03:00 100 mm[Hg] Shreya Newmano ld - External Body height 2024-07-15 13:58:00 182.9 cm Millie alva Seybold - External Body weight 2024-07-15 13:58:00 93.895 kg Millie alva Seybold - External BMI 2024-07-15 13:58:00 28.07 kg/m2 Millie alva Seybold - External Systolic blood pressure 2024-07-04 15:09:00 180 mm[Hg] Shreya Newmano ld - External Diastolic blood pressure 2024-07-04 15:09:00 100 mm[Hg] Shreya Newmano ld - External Heart rate 2024-07-04 15:09:00 117 /min Mame Newmanold - External Body temperature 2024-07-04 15:09:00 36.22 Kasey Shreya Wattybold - External Respiratory rate 2024-07-04 15:09:00 16 /min Shreya Wattybold - External Body height 2024-07-04 15:09:00 182.9 cm Millie ey Seybold - External Body weight 2024-07-04 15:09:00 93.895 kg Millie ey Seybold - External BMI 2024-07-04 15:09:00 28.07 kg/m2 Millie ey Seybold - External Oxygen saturation in Arterial blood by Pulse oximetry 2024-07-04 15:09:00 99 /min Shreya Sauer ld - External Encounters Start Date/Time End Date/Time Encounter Type Admission Type Attending [facility] Care Department Encounter ID Source 2024-12-12 15:28:16 2024-12-12 15:28:16 Outpatient [facility] [id number] Filemon Jarvis 2024-08-26 00:00:00 2024-08-26 00:00:00 Outpatient LASHA BETANCOURT [id number] Shreya [facility] 2024-08-13 00:00:00 2024-08-13 00:00:00 Outpatient LASHA BETANCOURT [id number] Shreya [facility] 2024-08-12 09:10:00 2024-08-12 09:10:00 [facility] [id number] [facility]24-08-12 00:00:00 2024-08-12 00:00:00 Outpatient LASHA BETANCOURT [id number] [facility] 2024-07-27 00:00:00 2024-07-27 00:00:00 Outpatient [facility]ASHA BETANCOURT [id number] [facility] 2024-07-25 00:00:00 2024-07-25 00:00:00 Outpatient LASHA BETANCOURT [id number] [facility] 2024-07-15 09:20:00 2024-07-15 09:20:00 [facility] GOOD[facility] [id number] [facility] 2024-07-15 08:40:00 2024-07-15 08:40:00 Outpatient SHREYA CASH [id number] [facility] 2024-07-15 00:00:00 2024-07-15 00:00:00 [facility] GOODSON [id number] [facility] 2024-07-11 00:00:00 2024-07-11 00:00:00 [facility] GOOD[facility] [id number] [facility] 2024-07-04 10:30:00 2024-07-04 10:30:00 Outpatient LASHA BETANCOURT [id number] Shreya Patel 2022-05-10 11:00:00 2022-05-10 11:00:00 Outpatient CHAIM JASSO [facility] [id number] Melita sparrow [facility] Program Notes Date/Time Note Provider Source 2024-07-15 08:58:55 Chief Complaint Patient presents with Consultation Right hell and tendon damage. He states has pain for many years but about a month ago he fell of a ladder. [facility] suggested him to see a Specialist. Level of pain 06/07 Akua Pizano [facility] 2024-07-04 10:11:08 Chief Complaint Patient presents with Establish Care Referral Right foot injury , x 1 month ago Birdie Nguyen CMA II [facility]
--- NOTE | 2025-01-13 20:00 | RAD REPORT ---
EXAM: CT brain without contrast HISTORY: DIZZINESS COMPARISON: 08/30/2022 TECHNIQUE: Multiple contiguous axial images were obtained and a CT of the brain without contrast. Sag ittal and coronal reformats were performed. One or more of the following dose reduction techniques were used: Automated exposure control, adjust ment of the mA and/or kV according to patient size, and/or iterative reconstruction. FINDINGS: No evidence of hydrocephalus, intracranial hemorrhage, or extra-axial fluid collection. The brain is normal in morphology. No evidence of midline shift or areas of brain edema. The calvarium is intact. The visualized paranasal sinuses and mastoid air cells are essentially clear . IMPRESSION: No evidence of acute intracranial abnormality.
[2025-01-13 20:06] LABS: Absolute Eosinophils 0.2 K/uL (0-0.5); Absolute Lymphocytes (CBC) 3.4 K/uL (0.7-4.9); Absolute Monocytes 0.9 K/uL (0.1-1.3); Absolute Neutrophil 5.4 K/uL (1.8-8.0); Basophils % 0.3 % (0-1.3); Eosinophils % 1.6 % (0-4.4); Hematocrit 45.8 % (39.6-49.0); Hemoglobin 15.8 g/dL (13.6-17.9); Lymphocytes % 34.3 % (15.3-44.8); MCH 30.9 pg (27.0-35.0); MCHC 34.4 g/dL (32.0-36.0); MCV 89.6 fL (80-100); MPV 8.6 fL (7.6-11.3); Monocytes % 8.7 % (3.3-12.3); Neutrophils % 55.1 % (41.7-73.7); Platelets 169 thou/uL (152-406); RBC Red Blood Cell Count 5.11 M/uL (4.33-5.43)
[2025-01-13 20:22] LABS: Anion Gap 6.7 mEq/L (5.0-15.0); Potassium 3.7 mEq/L (3.5-5.1); Troponin High Sensitivity 4.1 pg/mL (<58.9)
[2025-01-13] MEDS ORDERED: MECLIZINE HCL 12.5 MG TAB ONE (20:59)
--- NOTE | 2025-01-13 22:00 | ER ---
Nurse's Notes [facility] Name: Simeon Juarez Age: 64 yrs Sex: Male : 1960 Arrival Date: 01/13/2025 Time: 17:35 Bed 16 Private MD: Diagnosis: Dizziness and giddiness Presentation: 01/13 18:08 Chief complaint: Patient states: dizziness since last night , also feels nauseated and iw has muscle weakness, last time this happened his potassium was low , is currently at detox in [place] for opioid addiction. Coronavirus screen: At this time, the client does not indicate any symptoms associated with coronavirus-19. Ebola Screen: No symptoms or risks identified at this time. 18:08 Method Of Arrival: Ambulatory iw 18:09 Initial Sepsis Screen: Does the patient meet any 2 criteria? No. Patient's initial iw sepsis screen is negative. Does the patient have a suspected source of infection? No. Patient's initial sepsis screen is negative. Risk Assessment: Do you want to hurt yourself or someone else? Patient reports no desire to harm self or others. Onset of symptoms was January 11, 2025. 18:09 Acuity: MED 3 iw Historical: - Allergies: 18:10 No Known Allergies; iw - Home Meds: 18:10 Methadone 110 mg Oral daily [Active]; iw - PMHx: 18:10 Hypertensive disorder; Substance Abuse; iw - PSHx: 18:10 Appendectomy; iw - Immunization history:: Adult Immunizations not up to date. - Infectious Disease History:: Denies. - Social history:: Smoking status: Patient/guardian denies using tobacco, but has a distant history of tobacco abuse. Screenin:18 [facility] ED Fall Risk Assessment (Adult) History of falling in the last 3 months, aa10 including since admission No falls in past 3 months (0 pts) Confusion or Disorientation No (0 pts) Intoxicated or Sedated No (0 pts) Impaired Gait No (0 pts) Mobility Assist Device Used No (0 pt) Altered Elimination No (0 pt) Score/Fall Risk Level 0 - 2 = Low Risk Oriented to surroundings, Maintained a safe environment, Educated pt \T\ family on fall prevention, incl call for assistance when getting out of bed, Assessed \T\ reinforced patient's understanding of fall precautions, Provided non-skid footwear, Hourly rounding (assess needs \T\ fall precautionary measures) done. Abuse screen: Denies threats or abuse. Denies injuries from another. Nutritional screening: No deficits noted. Tuberculosis screening: No symptoms or risk factors identified. Assessment: 19:10 General: Appears in no apparent distress. comfortable, well groomed, well developed, aa10 Behavior is calm, cooperative, appropriate for age, Reports feeling ill for 12-24 hours, dizziness, patient related this feeling to when he was informed his potassium level was low. Pain: Denies pain. Neuro: No deficits noted. Level of Consciousness is awake, alert, obeys commands, Oriented to person, place, time, situation, Appropriate for age Histologic Technician are equal bilaterally Moves all extremities. Full function Gait is steady, Speech is normal, Facial symmetry appears normal, Pupils are PERRLA, Intact. Cardiovascular: No deficits noted. Capillary refill < 3 seconds. Respiratory: No deficits noted. Airway is patent. GI: No deficits noted. Abdomen is flat, non-distended, Abd is soft and non tender X 4 quads. Vital Signs: 18:09 BP 121 / 83; Pulse 100; Resp 16; Temp 98.1; Pulse Ox 99% on R/A; Weight 95.25 kg; iw Height 6 ft. 0 in. ; 19:17 BP 122 / 77; Pulse 86; Resp 20 S; Temp 98; Pulse Ox 99% on R/A; MAP 87 mmHg; aa10 22:23 BP 131 / 83; Pulse 74; Resp 20; Temp 98; Pulse Ox 96% ; MAP 98 mmHg; aa10 18:09 Body Mass Index 28.48 (95.25 kg, 182.88 cm) iw ED Course: 17:45 Patient arrived in ED. al6 18:10 Triage completed. iw 18:11 Arm band placed on. iw 18:14 Rufina Duong PA-C is PHCP. sb4 18:14 Daljit Genao MD is Attending Physician. sb4 19:18 No provider procedures requiring assistance completed. aa10 19:19 Patient has correct armband on for positive identification. Placed in gown. Bed in low aa10 position. Call light in reach. Side rails up X2. Provided Education on: about plan of care. 19:50 Basic Metabolic Panel Sent. aa10 19:50 CBC with Diff Sent. aa10 19:50 Troponin HS Sent. aa10 19:58 Head Brain Wo Cont CT In Process Unspecified. EDMS 22:24 Inserted saline lock: 18 gauge in right forearm, using aseptic technique. aa10 22:32 IV discontinued. aa10 Administered Medications: 21:01 Drug: Meclizine PO 50 mg PO once Route: PO; aa10 22:33 Follow up: Response: No adverse reaction; Marked relief of symptoms aa10 Medication: 19:18 VIS not applicable for this client. aa10 Outcome: 21:59 Discharge ordered by . sb4 22:32 Discharged to home ambulatory, aa10 22:32 Condition: good 22:32 Discharge instructions given to patient, Instructed on discharge instructions, Demonstrated understanding of instructions, Prescriptions given X 1, 22:37 Patient left the ED. aa10 Signatures: Dispatcher [employer] Ambreen Mcdaniels, RN RN iw Rufina Duong, PA-C PAMarky sb4 Patricio Cochran RN RN aa10 Cheyenne Haynes6 Corrections: (The following items were deleted from the chart) 18:10 18:08 Chief complaint: Patient states: dizziness since last night , also feels iw nauseated and has muscle weakness, last time this happened his potassium was low iw 18:12 18:09 BP 121 / 83; Pulse 100bpm; Resp 16bpm; Pulse Ox 99% RA; Temp 98.1F; iw iw
--- NOTE | 2025-01-13 22:00 | EDPHYS ---
Physician Documentation [facility] Name: Simeon Juarez Age: 64 yrs Sex: Male : 1960 Arrival Date: 01/13/2025 Time: 17:35 Bed 16 Private MD: ED Physician Daljit Genao HPI: 01/13 20:01 This 64 yrs old Male presents to ER via Ambulatory with complaints of sb4 Weakness, Dizziness. 20:01 Patient reports feeling dizzy and nauseated for the past 24 hours. States last time he sb4 felt like this, his potassium was low. He denies any chest pain, shortness of breath, vomiting, diarrhea. States that the dizziness resolves when he is sitting still, but gets worse when he stands up. Historical: - Allergies: 18:10 No Known Allergies; iw - Home Meds: 18:10 Methadone 110 mg Oral daily [Active]; iw - PMHx: 18:10 Hypertensive disorder; Substance Abuse; iw - PSHx: 18:10 Appendectomy; iw - Immunization history:: Adult Immunizations not up to date. - Infectious Disease History:: Denies. - Social history:: Smoking status: Patient/guardian denies using tobacco, but has a distant history of tobacco abuse. ROS: 20:01 Constitutional: Negative for fever, chills, and weight loss, sb4 20:01 Neuro: Positive for dizziness, 20:01 All other systems are negative, Exam: 20:01 Constitutional: This is a well developed, well nourished patient who is awake, alert, sb4 and in no acute distress. Head/Face: Normocephalic, atraumatic. Eyes: Extra-ocular motions intact. Periorbital areas with no swelling, redness, or edema. ENT: Mucous membranes moist. Cardiovascular: Regular rate and rhythm with a normal S1 and S2. Respiratory: No increased work of breathing, no retractions or nasal flaring. Abdomen/GI: Soft, non-tender, no distension. Skin: Warm, dry with normal turgor. Normal color with no rashes, no lesions, and no evidence of cellulitis. Neuro: Awake and alert, GCS 15, oriented to person, place, time, and situation. Motor strength 5/5 in all extremities. Sensory grossly intact. Vital Signs: 18:09 BP 121 / 83; Pulse 100; Resp 16; Temp 98.1; Pulse Ox 99% on R/A; Weight 95.25 kg; iw Height 6 ft. 0 in. ; 19:17 BP 122 / 77; Pulse 86; Resp 20 S; Temp 98; Pulse Ox 99% on R/A; MAP 87 mmHg; aa10 22:23 BP 131 / 83; Pulse 74; Resp 20; Temp 98; Pulse Ox 96% ; MAP 98 mmHg; aa10 18:09 Body Mass Index 28.48 (95.25 kg, 182.88 cm) iw MDM: 18:14 Medical Screening Exam initiated sb4 22:02 Data reviewed: vital signs, nurses notes, lab test result(s), EKG, radiologic studies, sb4 and as a result, I will discharge patient. Counseling: I had a detailed discussion with the patient and/or guardian regarding the historical points, exam findings, and any diagnostic results supporting the discharge/admit diagnosis, lab results, radiology results, the need for outpatient follow up, for definitive care, to return to the emergency department if symptoms worsen or persist or if there are any questions or concerns that arise at home. 01/13 19:10 Order name: Basic Metabolic Panel; Complete Time: 20:22 sb4 01/13 19:10 Order name: CBC with Diff; Complete Time: 20:13 sb4 01/13 19:10 Order name: Troponin HS; Complete Time: 20:22 sb4 01/13 19:10 Order name: Head Brain Wo Cont CT; Complete Time: 20:01 sb4 01/13 19:10 Order name: EKG; Complete Time: 19:11 sb4 01/13 19:10 Order name: Cardiac monitoring; Complete Time: 19:28 sb4 01/13 19:10 Order name: EKG - Nurse/Tech; Complete Time: 19:40 sb4 01/13 19:10 Order name: IV Saline Lock; Complete Time: 19:50 sb4 01/13 19:10 Order name: Labs collected and sent; Complete Time: 19:50 sb4 01/13 19:10 Order name: O2 Per Protocol; Complete Time: 19:28 sb4 01/13 19:10 Order name: O2 Sat Monitoring; Complete Time: 19:28 sb4 EC:16 Rate is 82 beats/min. Rhythm is regular, Sinus Rhythm with Occasional PVCs. PA interval sb4 is normal at 142 msec. QRS interval is normal at 96 msec. QT interval is normal at 372 msec. No Q waves. T waves are Normal. No ST changes noted. Clinical impression: No evidence of ischemia. Interpreted by me. Reviewed by me. Administered Medications: 21:01 Drug: Meclizine PO 50 mg PO once Route: PO; aa10 22:33 Follow up: Response: No adverse reaction; Marked relief of symptoms aa10 Disposition Summary: 01/13/25 21:59 Discharge Ordered Notes: Location: Home sb4 Problem: new sb4 Symptoms: have improved sb4 Condition: Stable sb4 Diagnosis - Dizziness and giddiness sb4 Followup: sb4 - With: Private Physician - When: 1 week - Reason: Recheck today's complaints, Re-evaluation by your physician Discharge Instructions: - Discharge Summary Sheet sb4 - Vertigo, [id number] sb4 - Dizziness, [id number] sb4 Forms: - Patient Portal Instructions sb4 - Leadership Thank You Letter sb4 Prescriptions: - Meclizine 25 mg Oral Tablet - take 1 tablet ORAL route every 8 hours As needed; 30 tablet; Refills: 0, sb4 Product Selection Permitted Signatures: Dispatcher [employer] Ambreen Mcdaniels, RN Rufina Lopez PA-C PA-C sb4 Patricio Cochran RN RN aa10
[2025-01-14 05:03] VITALS: TEMP 98
[2025-01-14 05:09] VITALS: BP 131/83; O2SAT 96
--- NOTE | 2025-01-14 12:28 | EKG ---
Test Date: 2025-01-13 Test Time: 19:36:48 Strip Presser: GUILLERMO MEASUREMENT RESULTS: Intervals: Rate: 82 CT: 142 QRSD: 96 QT: 372 QTc: 434 [place]: P: 25 CT: 142 QRS: 27 T: 26 INTERPRETIVE STATEMENTS: Sinus rhythm with occasional premature ventricular complexes and fusion complexes Otherwise normal ECG Compared to ECG 07/24/2024 15:26:10 Fusion complex(es) now present Ventricular premature complex(es) now present ST (T wave) deviation no longer present Electronically Signed On 01-14-25 12:25:14 CDT by Jay Kendall
== END 2025-01-13 22:37 | disposition home or self-care (01) ==
LOC: ER 17:35
DX: R42 Dizziness and giddiness (principal); R53.1 Weakness
CPT/HCPCS: 85025; 80048; 36415; 84484; 70450; J8597; 93005

== ENCOUNTER 2025-01-30 11:20 | Emergency (ER) | payer OTHER ==
--- OUTSIDE RECORDS SUMMARY | 2025-01-30 12:57 | XMS REPORT | Continuity of Care Document ---
Author Name Unknown Address [address] [place] [address] [address] [place] [address] [facility] Address [address] [place] [address] [address] [place] [address] Care Team Providers Care Wood Type Finisher Name Role Phone Maddie Vásquez Primary Care Physician [phone] LASHA BETANCOURT Attending Clinician Unavailable JONA GOODSON Attending Clinician Unav ailable AIDE Attending Clinician Unavailable AIDE Admitting Clinician Unavailable Payers Payer Name Policy Type Policy Number Effective Date Expirati on Date Source AETNA MP [employer] SILVER 5 O EPIC TRAINER 94 ON 9 [id number] 2023 00:00:00 Problems Condition Name Condition Details Condition Category Status Onset Date Resolution Date Last Treatment Date Treating Clinician Comments Source Hypertensi on Hypertensi on Disease Active 07-04 00:00: 00 Kenzie sofia Hyperlipid emia Hyperlipid emia Disease Active 07-04 00:00: 00 Kenzie sofia Social History Social Habit Start Date Stop Date Quantity Comments Source Sexual orientation Yo Patel - External Alcoholic beverage intake 2024-07-16 00:00:00 2024-07-16 00:00:00 Ex-drinker (finding) Kenzie Patel - External History of Social function 2024-07-15 00:00:00 2024-07-15 00:00:00 Kenzie Patel - External Tobacco use and exposure 2024-07-04 00:00:00 2024-07-04 00:00:00 Smokeless tobacco non-user Kenzei Seybold - External Sex 2022-07-26 21:11:19 2022-07-26 21:11:19 Male (finding) Kenzie Patel - External Sex [birth year] at 1960 00:00:00 1960 00:00:00 Kenzie Wattalfredabruce - External Smoking Status Start Date Stop Date Source Never smoked tobacco Kenzie Wattmicki - External Medications Ordered Medication Name Filled Medication Name Start Date Stop Date Current Medication? Ordering Clinician Indication Dosage Frequency Signature (SIG) Comments Components Source metformin ER 500 mg tablet,exte nded release 24 hr 01-19 00:00: 00 Yes 1mg Filemon Jarvis atorvastati n 10 mg tablet 01-19 00:00: 00 Yes 1mg Filemon Jarvis triamcinolo ne acetonide 0.5 % topical cream 01-15 00:00: 00 Yes 1% Filemon Jarvis lisinopril 20 mg tablet 01-15 00:00: 00 Yes 1mg Filemon Jarvis meclizine 25 mg tablet 01-14 00:00: 00 Yes mg Filemon Jarvis Amlodipine Besylate (Norvasc) 10 MG oral Tablet 07-04 00:00: 00 Yes [id number] 10mg QD Take 1 tablet (10 mg total) by mouth daily. Kenzie Gann Externa l Vital Signs Vital Name Observation Time Observation Value Comments S ned Systolic blood pressure 2024-07-15 14:03:00 180 mm[Hg] Kenzie Sauer ld - External Diastolic blood pressure 2024-07-15 14:03:00 100 mm[Hg] Kenzie Sauer ld - External Body height 2024-07-15 13:58:00 182.9 cm Millie artie Trentold - External Body weight 2024-07-15 13:58:00 93.895 kg Millie artie alfredabruce - External BMI 2024-07-15 13:58:00 28.07 kg/m2 Millie ey ybold - External Systolic blood pressure 2024-07-04 15:09:00 180 mm[Hg] Kenzie Sauer ld - External Diastolic blood pressure 2024-07-04 15:09:00 100 mm[Hg] Kenzie Seybo ld - External Heart rate 2024-07-04 15:09:00 117 /min Mame jones Seybold - External Body temperature 2024-07-04 15:09:00 36.22 Ksaey Kenzie Seybold - External Respiratory rate 2024-07-04 15:09:00 16 /min Kenzie Wattybold - External Body height 2024-07-04 15:09:00 182.9 cm Millie alva Seybold - External Body weight 2024-07-04 15:09:00 93.895 kg Millie ey Seybold - External BMI 2024-07-04 15:09:00 28.07 kg/m2 Millie alva Seybold - External Oxygen saturation in Arterial blood by Pulse oximetry 2024-07-04 15:09:00 99 /min Kenzie Newmano ld - External BP Diastolic 2025-01-15 11:14:00 77 mm[Hg] Edis Jarvis Weight Measured 2025-01-15 11:14:00 203.40 pounds Filemon Jarvis Height Measured 2025-01-15 11:14:00 72.00 inches Filemon Jarvis Body Temperature 2025-01-15 11:14:00 98.10 degrees Filemon Jarvis Heart Rate 2025-01-15 11:14:00 100.00 /min Omar Jarvis Respiratory Rate 2025-01-15 11:14:00 18.00 /min Filemon Jarvis BP Systolic 2025-01-15 11:14:00 163 mm[Hg] Omar Jarvis Encounters Start Date/Time End Date/Time Encounter Type Admission Type Attending [facility] Care Department Encounter ID Source 2025-01-16 08:08:09 2025-01-16 08:08:[address] [facility] [id number] Filemon Jarvis 2025-01-15 11:06:45 2025-01-15 11:06:[address] [facility] [id number] Filemon Jarvis 2025-01-15 00:00:00 2025-01-15 00:00:[address] [facility] [id number] Filemon Jarvis 2024-12-12 15:28:16 2024-12-12 15:28:[address] [facility] [id number] Filemon Jarvis 2024-08-26 00:00:00 2024-08-26 00:00:00 Outpatient LASHA BETANCOURT [id number] [facility] 2024-08-13 00:00:00 2024-08-13 00:00:00 Outpatient LASHA BETANCOURT [id number] [facility] 2024-08-12 09:10:00 2024-08-12 09:10:00 Outpatient JONA GOODSON [id number] [facility] 2024-08-12 00:00:00 2024-08-12 00:00:00 Outpatient LASHA BETANCOURT [id number] [facility] 2024-07-27 00:00:00 2024-07-27 00:00:00 Outpatient LASHA BETANCOURT [id number] [facility] 2024-07-25 00:00:00 2024-07-25 00:00:00 Outpatient LASHA BETANCOURT [id number] [facility] 2024-07-15 09:20:00 2024-07-15 09:20:00 Outpatient JONA GOODSON [id number] [facility] 2024-07-15 08:40:00 2024-07-15 08:40:00 Outpatient KENZIE CASH [id number] [facility] 2024-07-15 00:00:00 2024-07-15 00:00:00 Outpatient JONA GOODSON [id number] [facility] 2024-07-11 00:00:00 2024-07-11 00:00:00 Outpatient JONA GOODSON [id number] [facility] 2024-07-04 10:30:00 2024-07-04 10:30:00 Outpatient LASHA BETANCOURT [id number] [facility] 2022-05-10 11:00:00 2022-05-10 11:00:00 Outpatient FERGUSONGERARD KNAPP GAANGELINA [facility] [id number] [facility] Results Test Description Test Time Test Comments Results Result Co mments Source Filemon Razo [facility] (INCLUDES DIFF/PLT)2025-01-17 00:00:00* Test Item Value Reference Range Interpretation Comme nts WHITE BLOOD CELL COUNT (test code = 6690-2) 8.7 Thousand/uL RED BLOOD CELL COUNT (test code = 789-8) 4.87 Million/uL HEMOGLOBIN (test code = 718-7) 14.6 g/dL HEMATOCRIT (test code = 4544-3) 44.5 % MCV (test code = 787-2) 91.4 fL MCH (test code = 785-6) 30.0 pg MCHC (test code = 786-4) 32.8 g/dL RDW (test code = 788-0) 13.1 % PLATELET COUNT (test code = 777-3) 179 Thousand/uL MPV (test code = 776-5) 10.6 fL ABSOLUTE NEUTROPHILS (test code = 751-8) 4254 cells/uL ABSOLUTE BAND NEUTROPHILS (test code = 37098-0) DNR cells/uL ABSOLUTE METAMYELOCYTES (natacha t code = 40740-2) DNR cells/uL ABSOLUTE MYELOCYTES (test code = 58367-6) DNR cells/uL ABSOLUTE PROMYELOCYTES (test code = 14122-7) DNR cells/uL ABSOLUTE LYMPHOCYTES (test code = 731-0) 3454 cells/uL ABSOLUTE MONOCYTES (test cod e = 742-7) 687 cells/uL ABSOLUTE EOSINOPHILS (test code = 711-2) 278 cells/uL ABSOLUTE BASOPHILS (test cod e = 704-7) 26 cells/uL ABSOLUTE BLASTS (test code = 66284-9) DNR cells/uL ABSOLUTE NUCLEATED RBC (test code = 06946-9) DNR cells/uL NEUTROPHILS (test code = 770-8) 48.9 % BAND NEUTROPHILS (test code = 764-1) DNR % METAMYELOCYTES (test code = 740-1) DNR % MYELOCYTES (test code = 749-2) DNR % PROMYELOCYTES (test code = 783-1) DNR % LYMPHOCYTES (test code = 736-9) 39.7 % REACTIVE LYMPHOCYTES (test code = 93597-0) DNR % MONOCYTES (test code = 5905-5) 7.9 % EOSINOPHILS (test code = 713-8) 3.2 % BASOPHILS (test code = 706-2) 0.3 % BLASTS (test code = 709-6) DNR % NUCLEATED RBC (test code = 80978-2) DNR /100WBC COMMENT(S) (test code = 8251-1) DNR Filemon JarvisCOMPREHENSIVE METABOLIC [id number] 00:00:00* Test Item Value Reference Range Interpretation Comme nts GLUCOSE (test code = 2345-7) 101 mg/dL UREA NITROGEN (BUN) (test code = 3094-0) 20 mg/dL CREATININE (test code = 2160-0) 0.94 mg/dL EGFR (test code = 98079-7) 92 mL/min/1.73m2 BUN/CREATININE RATIO (test code = 3097-3) SEE NOTE: (calc) SODIUM (test code = 2951-2) 139 mmol/L POTASSIUM (test code = 2823-3) 4.6 mmol/L CHLORIDE (test code = 2075-0) 99 mmol/L CARBON DIOXIDE (test code = 2027-9) 36 mmol/L CALCIUM (test code = 29180-4) 9.3 mg/dL PROTEIN, TOTAL (test code = 2885-2) 7.1 g/dL ALBUMIN (test code = 1751-7) 4.1 g/dL GLOBULIN (test code = 23426-3) 3.0 g/dL(calc) ALBUMIN/GLOBULIN RATIO (test code = 1759-0) 1.4 (calc) BILIRUBIN, TOTAL (test code = 1975-2) 0.4 mg/dL ALKALINE PHOSPHATASE (test code = 6768-6) 119 U/L AST (test code = 1920-8) 21 U/L ALT (test code = 1742-6) 24 U/L Filemon JarvisLIPID [id number] 00:00:00* Test Item Value Reference Range Interpretation Comme nts CHOLESTEROL, TOTAL (test cod e = 2093-3) 179 mg/dL HDL CHOLESTEROL (test code = 2085-9) 43 mg/dL TRIGLYCERIDES (test code = 2571-8) 114 mg/dL LDL-CHOLESTEROL (test code = 54722-7) 114 mg/dL(calc) CHOL/HDLC RATIO (test code = 9830-1) 4.2 (calc) NON HDL CHOLESTEROL (test code = 32386-6) 136 mg/dL(calc) Filemon Jarvis Notes Date/Time Note Provider Source Filemon Jarvis [facility]2024-09-17 08:58:55 Chief Complaint Patient presents with Consultation Right hell and tendon damage. He states has pain for many years but about a month ago he fell of a ladder. Went To [employer] they suggested him to see a Specialist. Level of pain 06/07 Akua Pizano [facility]2024-09-06 10:11:08 Chief Complaint Patient presents with Establish Care Referral Right foot injury , x 1 month ago Birdie Nguyen CMA II [facility]
[2025-01-30 13:10] LABS: Anion Gap 5.8 mEq/L (5.0-15.0); Potassium 3.8 mEq/L (3.5-5.1); Troponin High Sensitivity 5.5 pg/mL (<58.9)
[2025-01-30 13:11] LABS: Absolute Eosinophils 0.1 K/uL (0-0.5); Absolute Lymphocytes (CBC) 1.8 K/uL (0.7-4.9); Absolute Monocytes 0.5 K/uL (0.1-1.3); Absolute Neutrophil 5.4 K/uL (1.8-8.0); Basophils % 0.2 % (0-1.3); Eosinophils % 1.8 % (0-4.4); Hematocrit 40.8 % (39.6-49.0); Hemoglobin 13.9 g/dL (13.6-17.9); Lymphocytes % 22.7 % (15.3-44.8); MCH 30.5 pg (27.0-35.0); MCV 89.7 fL (80-100); MPV 8.2 fL (7.6-11.3); Monocytes % 6.3 % (3.3-12.3); Nucleated Red Blood Cells % 0.1 % (0-0); Platelets 156 thou/uL (152-406); RBC Red Blood Cell Count 4.55 M/uL (4.33-5.43); Red Cell Distribution Width 14.1 % (12.1-15.2)
[2025-01-30 13:15] LABS: Protime INR 0.96
--- NOTE | 2025-01-30 13:35 | RAD REPORT ---
EXAMINATION: Head Brain Wo Cont CLINICAL INDICATION: Male, 64 years old.dizzy TECHNIQUE: Axial CT images from the skull base to the vertex without intravenous contrast. Coronal an d sagittal reformatted images were created from the data set. One or more of the following dose reduction techniques were used: Automated exposure control, adjustment of the mA and/or kV according to patient size, and/or iterative reconstruction. Unless otherwise specified, incidental findings do not require dedicated imaging follow-up. [id number]. COMPARISON: 01/14/2020 FINDINGS: INTRACRANIAL: No acute intracranial hemorrhage. No hydrocephalus. No mass effect or midline shift. No significant white matter disease.Age advanced cerebral atrophy. Bilateral basal ganglia mineralization. VASCULATURE: No visualized abnormalities in the arteries or dural venous sinuses. SCALP/SKULL: No calvarial fracture identified. No acute soft tissue abnormality. SINUSES: The visualized paranasal sinuses are mostly clear. No significant mastoid fluid. IMPRESSION: No acute intracranial abnormality. No significant change from prior.
--- NOTE | 2025-01-30 13:35 | RAD REPORT ---
EXAM: Chest Single View HISTORY: 64 years Male dizziness COMPARISON: 07/24/2024 FINDINGS: LUNGS/PLEURA: The lungs are clear. No pleural effusions or pneumothorax. No pulmonary edema. CARDIAC/MEDIASTINUM: The cardiac silhouette is within normal limits. UPPER ABDOMEN: No significant abnormality. BONES: No acute abnormality. LINES/TUBES/OTHER: N/A IMPRESSION: No evidence of acute cardiopulmonary disease. No significant change from prior.
--- NOTE | 2025-01-30 14:02 | ER ---
Nurse's Notes [facility] Name: Simeon Juarez Age: 64 yrs Sex: Male : 1960 Arrival Date: 01/30/2025 Time: 11:17 Bed 19 Private MD: Diagnosis: Essential (primary) hypertension Presentation: 01/30 11:37 Chief complaint: Patient states: Intermittent high blood pressure, dizziness and WARNER x 1 jl7 month, reports started Lisinopril 20 mg x 1 week, reports increased BP today, followup appointment today but came to ER because BP was elevated. Coronavirus screen: At this time, the client does not indicate any symptoms associated with coronavirus-19. Ebola Screen: No symptoms or risks identified at this time. Initial Sepsis Screen: Does the patient meet any 2 criteria? No. Patient's initial sepsis screen is negative. Does the patient have a suspected source of infection? No. Patient's initial sepsis screen is negative. Risk Assessment: Do you want to hurt yourself or someone else? Patient reports no desire to harm self or others. Onset of symptoms is unknown. Care prior to arrival: None. 11:37 Method Of Arrival: Wheelchair jl7 11:37 Acuity: MED 3 jl7 Triage Assessment: 11:40 General: Appears in no apparent distress. uncomfortable, Behavior is calm, cooperative, jl7 appropriate for age. Pain: Complains of pain in WARNER Pain currently is 7 out of 10 on a pain scale. Neuro: Level of Consciousness is awake, alert, obeys commands, Oriented to person, place, time, situation, Moves all extremities. Full function Speech is normal, Facial symmetry appears normal, Reports dizziness. Cardiovascular: Patient's skin is warm and dry. Respiratory: Airway is patent Respiratory effort is even, unlabored, Respiratory pattern is regular, symmetrical. Derm: Skin is pink, warm \T\ dry. Historical: - Allergies: 11:40 No Known Allergies; jl7 - Home Meds: 11:40 lisinopril 20 mg oral tablet [Active]; methadone 110 mg Oral daily [Active]; jl7 - PMHx: 11:40 Hypertensive disorder; Substance Abuse; jl7 - PSHx: 11:40 Appendectomy; jl7 - Immunization history:: Adult Immunizations unknown. - Infectious Disease History:: Denies. - Social history:: Smoking status: Patient denies any tobacco usage or history of. - Family history:: not pertinent. - Hospitalizations: : No recent hospitalization is reported. Screenin:15 [facility] ED Fall Risk Assessment (Adult) History of falling in the last 3 months, kj2 including since admission No falls in past 3 months (0 pts) Confusion or Disorientation No (0 pts) Intoxicated or Sedated No (0 pts) Impaired Gait No (0 pts) Mobility Assist Device Used No (0 pt) Altered Elimination No (0 pt) Score/Fall Risk Level 0 - 2 = Low Risk Maintained a safe environment, Hourly rounding (assess needs \T\ fall precautionary measures) done. Abuse screen: Denies threats or abuse. Denies injuries from another. Nutritional screening: No deficits noted. Tuberculosis screening: No symptoms or risk factors identified. Assessment: 12:26 Reassessment: Patient appears in no apparent distress at this time. Patient and/or jl7 family updated on plan of care and expected duration. Pain level reassessed. Patient is alert, oriented x 3, equal unlabored respirations, skin warm/dry/pink. Patient states feeling better. Patient states symptoms have improved. 13:30 Reassessment: Patient appears in no apparent distress at this time. Patient and/or kj2 family updated on plan of care and expected duration. Pain level reassessed. Patient is alert, oriented x 3, equal unlabored respirations, skin warm/dry/pink. Vital Signs: 11:37 BP 170 / 94; Pulse 58; Resp 17; Temp 98; Pulse Ox 100% ; Weight 90.72 kg; Height 6 ft. jl7 0 in. ; Pain 7/10; 12:25 BP 157 / 92; Pulse 83; Resp 15; Pulse Ox 100% ; jl7 14:03 BP 148 / 88; Pulse 82; Resp 20; Temp 98; Pulse Ox 100% ; kj2 11:37 Body Mass Index 27.12 (90.72 kg, 182.88 cm) jl7 11:37 Pain Scale: Adult jl7 ED Course: 11:17 Patient arrived in ED. mr 11:19 Reagan Emanuel MD is Attending Physician. rn 11:40 Triage completed. jl7 11:40 Arm band placed on right wrist. jl7 12:15 Patient has correct armband on for positive identification. Bed in low position. Call kj2 light in reach. Provided Education on: call light. 12:25 Initial lab(s) drawn, by me, sent to lab. EKG done, by ED staff, reviewed by Reagan Emanuel MD. Inserted saline lock: 20 gauge in right antecubital area, using aseptic technique. Blood collected. Flushed with 10 mL NS. 12:53 Marybel Hook, RN is Primary Nurse. kj2 13:17 CT Head Brain wo Cont In Process Unspecified. EDMS 13:27 XRAY Chest (1 view) In Process Unspecified. EDMS 14:04 No provider procedures requiring assistance completed. kj2 14:05 IV discontinued, intact, bleeding controlled, No redness/swelling at site. Pressure kj2 dressing applied. Administered Medications: No medications were administered Medication: 14:05 VIS not applicable for this client. kj2 Outcome: 14:01 Discharge ordered by . rn 14:05 Discharged to home ambulatory, kj2 14:05 Condition: stable 14:05 Discharge instructions given to patient, Instructed on discharge instructions, follow up and referral plans. Demonstrated understanding of instructions, follow-up care, 14:27 Patient left the ED. kj2 Signatures: Dispatcher [employer] EDKS Zuleyma Pozo, Reg Reg mr Reagan Emanuel MD MD rn Leal, Jahala, RN RN Marybel Valdivia, LOUISE RN kj2
--- NOTE | 2025-01-30 14:02 | EDPHYS ---
Physician Documentation [facility] Name: Simeon Juarez Age: 64 yrs Sex: Male : 1960 Arrival Date: 01/30/2025 Time: 11:17 Bed 19 Private MD: ED Physician Reagan Emanuel HPI: 01/30 13:58 This 64 yrs old Male presents to ER via Wheelchair with complaints of High rn Blood Pressure, Dizziness. 13:58 The patient has elevated blood pressure and discovered this at home. Onset: The rn symptoms/episode began/occurred 1 month(s) ago. Modifying factors:. Severity of symptoms: At its worst the blood pressure was moderate, in the emergency department the blood pressure is improved. The patient has experienced similar episodes in the past. Patient reports has had high blood pressure for the last month. Started on lisinopril for the last week. Was only given enough meds for a week and now took his last 1 today. Patient reports 1 month of intermittent headaches and dizziness. No focal neurologic deficit. No weakness or numbness. No vision changes. No speech changes. No chest pain or shortness of breath. No abdominal pain.. Historical: - Allergies: 11:40 No Known Allergies; jl7 - Home Meds: 11:40 lisinopril 20 mg oral tablet [Active]; methadone 110 mg Oral daily [Active]; jl7 - PMHx: 11:40 Hypertensive disorder; Substance Abuse; jl7 - PSHx: 11:40 Appendectomy; jl7 - Immunization history:: Adult Immunizations unknown. - Infectious Disease History:: Denies. - Social history:: Smoking status: Patient denies any tobacco usage or history of. - Family history:: not pertinent. - Hospitalizations: : No recent hospitalization is reported. ROS: 13:58 Constitutional: Negative for fever, chills, and weight loss, Neck: Negative for injury, rn pain, and swelling, Cardiovascular: Negative for chest pain, palpitations, and edema, Respiratory: Negative for shortness of breath, cough, wheezing, and pleuritic chest pain, Abdomen/GI: Negative for abdominal pain, nausea, vomiting, diarrhea, and constipation, Back: Negative for injury and pain, MS/Extremity: Negative for injury and deformity, Skin: Negative for injury, rash, and discoloration, Neuro: Positive for headache and dizziness Exam: 13:58 Constitutional: This is a well developed, well nourished patient who is awake, alert, rn and in no acute distress. Head/Face: Normocephalic, atraumatic. Eyes: Pupils equal round and reactive to light, extra-ocular motions intact. Lids and lashes normal. Conjunctiva and sclera are non-icteric and not injected. Cornea within normal limits. Periorbital areas with no swelling, redness, or edema. Neck: Neck supple, no meningismus Cardiovascular: Regular rate and rhythm. No pulse deficits. Respiratory: No increased work of breathing, no retractions or nasal flaring. Abdomen/GI: Soft, non-tender Neuro: Awake and alert, GCS 15, oriented to person, place, time, and situation. Cranial nerves II-XII grossly intact. Motor strength 5/5 in all extremities. Sensory grossly intact. Cerebellar exam normal. Normal gait. Vital Signs: 11:37 BP 170 / 94; Pulse 58; Resp 17; Temp 98; Pulse Ox 100% ; Weight 90.72 kg; Height 6 ft. jl7 0 in. ; Pain 7/10; 12:25 BP 157 / 92; Pulse 83; Resp 15; Pulse Ox 100% ; jl7 14:03 BP 148 / 88; Pulse 82; Resp 20; Temp 98; Pulse Ox 100% ; kj2 11:37 Body Mass Index 27.12 (90.72 kg, 182.88 cm) jl7 11:37 Pain Scale: Adult jl7 MDM: 11:19 Medical Screening Exam initiated rn 13:58 Differential diagnosis: hypertensive crisis, Malignant HTN, CVA, intracerebral rn hemorrhage. Data reviewed: vital signs, nurses notes, lab test result(s), EKG, radiologic studies, CT scan, plain films, and as a result, I will discharge patient. Counseling: I had a detailed discussion with the patient and/or guardian regarding the historical points, exam findings, and any diagnostic results supporting the discharge/admit diagnosis, the presence of at least one elevated blood pressure reading (>120/80) during this emergency department visit, lab results, radiology results, the need for outpatient follow up, to return to the emergency department if symptoms worsen or persist or if there are any questions or concerns that arise at home. Special discussion: I have referred the patient to see his PCP for further evaluation of high blood pressure. I discussed with the patient/guardian in detail that at this point there is no indication for admission to the hospital. It is understood, however, that if the symptoms persist or worsen the patient needs to return immediately for re-evaluation. Based on the history and exam findings, there is no indication for further emergent testing or inpatient evaluation. I discussed with the patient/guardian the need to see the primary care provider for further evaluation of the symptoms. ED course: No evidence of endorgan damage with hypertension. CT head negative for acute infarction. Has appointment with PCP. Will refill his lisinopril. I have personally reviewed all of the results, including but not limited to blood tests and imaging deemed necessary to safely discharge this patient at this time. All results given to and printed out for patient. I personally went over all the results with the patient and answered all questions. Patient will follow-up with PCP and or specialist as discussed. Return precautions given and understood.. 01/30 11:21 Order name: Basic Metabolic Panel; Complete Time: :01/30 11:21 Order name: CBC with Diff; Complete Time: 01/30 11:21 Order name: NT PRO-BNP; Complete Time: :01/30 11:21 Order name: PT-INR; Complete Time: :01/30 11:21 Order name: Troponin HS; Complete Time: 01/30 11:21 Order name: XRAY Chest (1 view); Complete Time: 13:01/30 11:21 Order name: CT Head Brain wo Cont; Complete Time: :01/30 11:21 Order name: Cardiac monitoring; Complete Time: 01/30 11:21 Order name: EKG - Nurse/Tech; Complete Time: :01/30 11:21 Order name: IV Saline Lock; Complete Time: 12: rn 01/30 11:21 Order name: Labs collected and sent; Complete Time: :01/30 11:21 Order name: O2 Per Protocol; Complete Time: :01/30 11:21 Order name: O2 Sat Monitoring; Complete Time: 11:56 rn Administered Medications: No medications were administered Disposition Summary: 01/30/25 14:01 Discharge Ordered Notes: Location: Home rn Problem: an ongoing problem rn Symptoms: have improved rn Condition: Stable rn Diagnosis - Essential (primary) hypertension rn Followup: rn - With: Private Physician - When: As needed - Reason: Recheck today's complaints, Re-evaluation by your physician Discharge Instructions: - Discharge Summary Sheet rn - Hypertension, Adult rn - How to Take Your Blood Pressure, [id number] rn - Managing Your Hypertension rn Forms: - Medication Reconciliation Form rn - Antibiotic rn perinatal - Prescription Opioid Use rn - Patient Portal Instructions rn - Leadership Thank You Letter rn Prescriptions: - Lisinopril 20 mg Oral Tablet - take 1 tablet ORAL route once daily; 20 tablet; Refills: 0, Product Selection rn Permitted Signatures: Dispatcher [employer] EDMS Reagan Emanuel MD MD rn Leal, Jahala, RN RN jl7 Corrections: (The following items were deleted from the chart) 12:54 12:54 Chest Single View+RAD.RAD.BRZ ordered. EDMS EDMS 12:54 12:54 Head Brain Wo Cont+CT.RAD.BRZ ordered. EDMS EDMS
[2025-01-30 14:57] VITALS: TEMP 98; O2SAT 100
[2025-01-30 15:13] VITALS: BP 148/88
--- NOTE | 2025-02-02 11:36 | EKG ---
Test Date: 2025-01-30 Test Time: 11:51:50 Deployment Manager: AYSHA MEASUREMENT RESULTS: Intervals: Rate: 99 NV: 170 QRSD: 98 QT: 342 QTc: 438 Galien: P: 56 NV: 170 QRS: 24 T: 39 INTERPRETIVE STATEMENTS: Sinus rhythm with occasional premature ventricular complexes Otherwise normal ECG Compared to ECG 01/13/2025 19:36:48 Fusion complex(es) no longer present Electronically Signed On 02-02-25 11:32:49 CDT by Jay Kendall
== END 2025-01-30 14:27 | disposition home or self-care (01) ==
LOC: ER 11:20
DX: I10 Essential (primary) hypertension (principal)
CPT/HCPCS: 36415; 70450; 71045; 80048; 83880; 84484; 85025; 85610; 93005; 99284

== ENCOUNTER 2025-02-07 22:15 | Emergency (ER) | payer OTHER ==
[2025-02-07] MEDS ORDERED: NITROGLYCERIN 0.4 MG/TAB SL ONE (22:18)
--- OUTSIDE RECORDS SUMMARY | 2025-02-07 22:18 | XMS REPORT | Continuity of Care Document ---
Author Name Unknown Address [address] [facility] [address] [place] [address] [facility] [place] Address [address] [facility] [place] [address] Care Team Providers Care Block Cableman Name Role Phone Maddie Vásquez Primary Care Physician RENEE MCPHERSON Attending Clinician Unavailable RENEE MCPHERSON Attending Clinician Unavailable Salazar Hoover MD Attending Clinician [phone] Marcos Castro MD Attending Clinician [phone] Renee Mcpherson MD Attending Clinician [phone] LASHA BETANCOURT Attending Clinician Unavailable JONA GOODSON Attending Clinician Unav ailable AIDE Attending Clinician Unavailable RENEE MCPHERSON Admitting Clinician Unavailable Renee Mcpherson MD Admitting Clinician [phone] AIDE Admitting Clinician Unavailable Payers Payer Name Policy Type Policy Number Effective Date Expirati on Date Source SIVAN PARKS [id number] 2024 00:00:00 SIVAN CEDEÑO SILVER 5 O SECTION [employer] 94 ON 9 [id number] 2023 00:00:00 Problems Condition Name Condition Details Condition Category Status Onset Date Resolution Date Last Treatment Date Treating Clinician Comments Source Dizziness Dizziness Disease Active 02-05 00:00: 00 [facility] Other hyperlipid emia Other hyperlipid emia Disease Active 07-04 00:00: 00 [facility] Hypertensi on Hypertensi on Disease Active 07-04 00:00: 00 [facility] Allergies, Adverse Reactions, Alerts Allergy Name Allergy Type Status Severity Reaction(s) Onset Date Inactive Date Treating Clinician Comments Source NO KNOWN ALLERGIE S Drug Class Active [facility] Social History Social Habit Start Date Stop Date Quantity Comments Source Sexual orientation [facility] History of tobacco use Cigarette Smoker [facility] Tobacco use and exposure 2025-02-05 00:00:00 2025-02-05 00:00:00 Smokeless tobacco non-user [facility] Alcoholic beverage intake 2025-02-05 00:00:00 2025-02-05 00:00:00 Lifetime non-drinker (finding) [facility] History of Social function 2025-02-05 00:00:00 2025-02-05 00:00:00 [facility] Sex 2022-07-26 21:11:19 2022-07-26 21:11:19 Male (finding) Kenzie Patel - External Sex assigned at 1960 00:00:00 1960 00:00:00 [facility] Smoking Status Start Date Stop Date Source Ex-smoker 2025-02-05 00:00:00 2025-02-05 00:00:00 [facility] Never smoked tobacco Kenzie Patel - External Medications Ordered Medication Name Filled Medication Name Start Date Stop Date Current Medication? Ordering Clinician Indication Dosage Frequency Signature (SIG) Comments Components Source enoxaparin (LOVENOX) injection 40 mg 02-05 22:00: 00 02-05 20:44 :49 No 40mg [facility] dicyclomine (BENTYL) capsule 10 mg 02-05 15:45: 00 02-05 16:09 :00 No 10mg 10 mg, Oral, Once, 1 dose, On Haydee 02/05/25 at 1045, Routine [facility] lisinopriL 20 mg tablet 02-05 15:44: 49 Yes 20mg Take 1 tablet by mouth in the morning. [facility] lisinopriL (PRINIVIL,Z ESTRIL) tablet 20 mg 02-05 14:00: 00 02-05 20:44 :49 No 20mg 20 mg, Oral, DAILY, First dose on Sun02/05/25 at 0900, Until Discontinu ed, Routine [facility] perflutren protein-A microsphr (OPTISON) injection 3 mL 02-05 13:45: 00 02-05 13:45 :00 No [id number] 3mL 3 mL, IV Push, ONCE, 1 dose, On Sun02/05/25 at 0845, Routine [facility] Sliding Scale Insulin - Lispro (HumaLOG) 02-05 13:00: 00 02-05 20:44 :49 No 0U Subcutaneo us, TID MEALS+HS, First dose on Sun02/05/25 at 0800, Until Discontinu ed, Routine [facility] NaCl 0.9% (NS) bolus infusion 500 mL 02-05 10:45: 00 02-05 10:13 :07 No 500mL at 999 mL/hr, 500 mL, IV Piggyback, ONCE, 1 dose, On Sun02/05/25 at 0545, ANGELA [facility] dicyclomine (BENTYL) capsule 10 mg 02-05 07:30: 00 02-05 07:53 :00 No 10mg 10 mg, Oral, ONCE, 1 dose, On Sun02/05/25 at 0230, Routine [facility] methocarbam oL (ROBAXIN) tablet 500 mg 02-05 07:30: 00 02-05 07:13 :00 No 500mg 500 mg, Oral, ONCE, 1 dose, On Sun02/05/25 at 0230, Routine [facility] NaCl 0.9% (NS) bolus infusion 1,000 mL 02-05 07:00: 00 02-05 07:24 :00 No 1000mL at 999 mL/hr, 1,000 mL, IV Piggyback, ONCE, 1 dose, On Sun02/05/25 at 0200, STAT [facility] glucagon HCL injection 1 mg 02-05 06:32: 33 02-05 20:44 :49 No 1mg 1 mg, Intramuscu lar, PRN, Starting on Sun02/05/25 at 0132, Until Sun02/05/25 at 1544, ANGELA, Low blood sugar, Blood Glucose < or = 70 mg/dL and patient is NPO, unable to swallow or has mental changes. [facility] dextrose 50 % in water (D50W) injection 25 mL 02-05 06:32: 33 02-05 20:44 :49 No 25mL 25 mL, Slow IV Push, PRN, Starting on Sun02/05/25 at 0132, Until Sun02/05/25 at 1544, ANGELA, Blood Glucose < or = 70 mg/dL and patient is NPO, unable to swallow or has mental status changes. [facility] acetaminoph en (TYLENOL) tablet 650 mg 02-05 05:57: 57 02-05 20:44 :49 No 650mg 650 mg, Oral, Q6HPRN, Starting on Sun02/05/25 at 0057, Until Sun02/05/25 at 1544, Routine, Pain (scale 1-3) [facility] metoprolol (LOPRESSOR) injection 5 mg 02-05 04:30: 00 02-05 03:44 :00 No 5mg 5 mg, Slow IV Push, ONCE, 1 dose, On Sun02/04/25 at 2330, ANGELA [facility] iopamidol (ISOVUE 370-500 mL) injection 80 mL 02-05 03:45: 00 02-05 03:45 :00 No [id number] 80mL 80 mL, Intravenou s, ONCE, 1 dose, On Sun02/04/25 at 2245, Routine [facility] metoprolol (LOPRESSOR) injection 5 mg 02-05 02:15: 00 02-05 02:09 :00 No 5mg 5 mg, Slow IV Push, ONCE, 1 dose, On Sun02/04/25 at 2115, ANGELA [facility] triamcinolo ne acetonide 0.5 % topical cream 02-03 00:00: 00 Yes 1% Filemon Jarvis lisinopril 20 mg tablet 02-03 00:00: 00 Yes 1mg Filemon Jarvis metformin ER 500 mg tablet,exte nded release 24 hr 01-19 00:00: 00 Yes 1mg Filemon Jarvis atorvastati n 10 mg tablet 01-19 00:00: 00 Yes 1mg Filemon Jarvis triamcinsohail ne acetonide 0.5 % topical cream 01-15 00:00: 00 Yes 1% Filemon Jarvis lisinopril 20 mg tablet 01-15 00:00: 00 Yes 1mg Filemon Jarvis meclizine 25 mg tablet 01-14 00:00: 00 Yes mg Filemon Jarvis Amlodipine Besylate (Norvasc) 10 MG oral Tablet 07-04 00:00: 00 Yes [id number] 10mg QD Take 1 tablet (10 mg total) by mouth daily. Kenzie sofia DOXYCYCLINE HYCLATE 100 MG ORAL CAP 12-03 00:00: 00 02-05 00:00 :00 No Take one capsule by mouth twice a day for seven days [facility] TRIMETHOPRI M-SULFAMETH OXAZOLE 160-800 MG ORAL TAB 12-03 00:00: 00 02-05 00:00 :00 No Take one tablet by mouth every 12 hours for seven days [facility] Immunizations Ordered Immunization Name Filled Immunization Name Date Status Comments Source SARS-COV-2 COVID-19 VACCINE - (MODERNA) 2022-06-19 00:00:00 Completed SARS-COV-2 COVID-19 VACCINE - (MODERNA) 2021-11-09 00:00:00 Completed SARS-COV-2 COVID-19 VACCINE - (MODERNA) 2021-02-16 00:00:00 Completed SARS-COV-2 COVID-19 VACCINE - (MODERNA) 2021-01-20 00:00:00 Completed Influenza, split virus, trivalent, preservative (3+ Yrs) (Afluria) 2017-02-16 00:00:00 Completed Zoster(Zostavax)(Shingl es) 2013-06-24 00:00:00 Completed Vital Signs Vital Name Observation Time Observation Value Comments S ource Systolic blood pressure 2025-02-05 16:30:00 133 mm[Hg] [facility] Diastolic blood pressure 2025-02-05 16:30:00 86 mm[Hg] [facility] Heart rate 2025-02-05 16:30:00 82 /min [facility] Body temperature 2025-02-05 16:30:00 36.78 Kasey [facility] Respiratory rate 2025-02-05 16:30:00 18 /min [facility] Oxygen saturation in Arterial blood by Pulse oximetry 2025-02-05 16:30:00 95 /min [facility] Body weight 2025-02-05 10:56:00 92.59 kg [facility] BMI 2025-02-05 10:56:00 27.68 kg/m2 [facility] Body height 2025-02-05 06:05:00 182.9 cm [facility] Systolic blood pressure 2024-07-15 14:03:00 180 mm[Hg] Kenzie ybo ld - External Diastolic blood pressure 2024-07-15 14:03:00 100 mm[Hg] Kenzie ybo ld - External Body height 2024-07-15 13:58:00 182.9 cm Millie ey Seybold - External Body weight 2024-07-15 13:58:00 93.895 kg Millie ey Seybold - External BMI 2024-07-15 13:58:00 28.07 kg/m2 Millie ey Seybold - External Systolic blood pressure 2024-07-04 15:09:00 180 mm[Hg] Kenzie Newmano ld - External Diastolic blood pressure 2024-07-04 15:09:00 100 mm[Hg] Kenzie Newmano ld - External Heart rate 2024-07-04 15:09:00 117 /min Mame jones Seybold - External Body temperature 2024-07-04 15:09:00 36.22 Kasey Kenzie Wattybold - External Respiratory rate 2024-07-04 15:09:00 16 /min Kenzie Wattybold - External Body height 2024-07-04 15:09:00 182.9 cm Millie alva Seybold - External Body weight 2024-07-04 15:09:00 93.895 kg Millie alva Seybold - External BMI 2024-07-04 15:09:00 28.07 kg/m2 Millie alva Seybold - External Oxygen saturation in Arterial blood by Pulse oximetry 2024-07-04 15:09:00 99 /min Kenzie Sauer ld - External BP Systolic 2025-02-03 14:46:00 182 mm[Hg] Omar walton F Matheus BP Diastolic 2025-02-03 14:46:00 98 mm[Hg] Edis phen Danni Jarvis Weight Measured 2025-02-03 14:46:00 202.60 pounds Filemon Jarvis Height Measured 2025-02-03 14:46:00 72.00 inches Filemon Jarvis Body Temperature 2025-02-03 14:46:00 97.50 degrees Filemon F Matheus Heart Rate 2025-02-03 14:46:00 103.00 /min Step hen F Matheus Respiratory Rate 2025-02-03 14:46:00 18.00 /min Filemon F Matheus Height Measured 2025-01-15 11:14:00 72.00 inches Filemon F Matheus Body Temperature 2025-01-15 11:14:00 98.10 degrees Filemon F Matheus Heart Rate 2025-01-15 11:14:00 100.00 /min Step hen F Matheus Respiratory Rate 2025-01-15 11:14:00 18.00 /min Filemon F Matheus BP Systolic 2025-01-15 11:14:00 163 mm[Hg] Step hen F Matheus BP Diastolic 2025-01-15 11:14:00 77 mm[Hg] Edis Jarvis Weight Measured 2025-01-15 11:14:00 203.40 pounds Filemon Jarvis Procedures Procedure Date / Time Performed Performing Clinician Source POCT GLUCOSE (AUTOMATED) 2025-02-05 17:14:00 Renee Mcpherson [facility] TRANSTHORACIC ECHO (TTE) COMPLETE W/ CONTRAST 2025-02-05 13:39:12 Giancarlo Ramirez [facility] POCT GLUCOSE (AUTOMATED) 2025-02-05 13:14:00 Renee Mcpherson [facility] LIPID PANEL (38228)(TOTAL CHOLESTEROL, TRIGLYCERIDES, HDL) 2025-02-05 10:13:00 Destiney You Ricardo [facility] CBC WITH DIFF 2025-02-05 10:13:00 Ciarra You [facility] CHEST PULMONARY ANGIOGRAM 2025-02-05 02:56:07 Salazar Hoover [facility] FREE T4 2025-02-05 02:22:00 Salazar Hoover [facility] URINE DRUG (IMMUNOASSAY) - COMPREHENSIVE DRUG SCREEN 2025-02-05 01:41:00 Salazar Hoover [facility] URINALYSIS 2025-02-05 01:41:00 Salazar Hoover [facility] FENTANYL (IMMUNOASSAY) 2025-02-05 01:41:00 Luís Hoover [facility] POCT GLUCOSE (AUTOMATED) 2025-02-05 01:37:00 Michael Hoover [facility] CREATINE KINASE 2025-02-05 01:33:00 [facility] 2025-02-05 01:33:00 Ciarra You Ricardo [facility] MAGNESIUM 2025-02-05 01:33:00 Salazar Hoover [facility] TROPONIN I 2025-02-05 01:33:00 Salazar Hoover [facility] THYROID STIMULATING HORMONE 2025-02-05 01:33:00 Salazar Hoover [facility] COMP. METABOLIC PANEL (65142) 2025-02-05 01:33:00 Salazar Hoover [facility] ETHANOL 2025-02-05 01:33:00 Salazar Hoover [facility] CBC WITH DIFF 2025-02-05 01:33:00 Salazar Hoover [facility] N-TERMINAL PRO-BNP 2025-02-05 01:33:00 Salazar Hoover [facility] Encounters Start Date/Time End Date/Time Encounter Type Admission Type Attending [facility] Care Department Encounter ID Source 2025-02-04 20:22:00 2025-02-05 15:44:00 Outpatient X RENEE MCPHERSON [facility] [id number] [facility] 2025-02-04 20:22:00 2025-02-05 15:44:00 Emergency Salazar Hoover Rizwan Abdulla, Amer [facility] [id number] [facility] 2025-02-03 14:31:41 2025-02-03 14:31:41 Outpatient SFA SFA [id number] Filemon Jarvis 2025-02-03 00:00:00 2025-02-03 00:00:00 Outpatient Visit SFA [id number] Filemon Jarvis 2025-01-16 08:08:09 2025-01-16 08:08:09 Outpatient SFA SFA [id number] Filemon Jarvis 2025-01-15 11:06:45 2025-01-15 11:06:45 Outpatient SFA SFA [id number] Filemon Jarvis 2025-01-15 00:00:00 2025-01-15 00:00:00 Outpatient Visit SFA [id number] Filemon Jarvis 2024-12-12 15:28:16 2024-12-12 15:28:16 Outpatient SFA [facility] [id number] Filemon Jarvis 2024-08-26 00:00:00 2024-08-26 00:00:00 Outpatient LASHA BETANCOURT [id number] [facility] 2024-08-13 00:00:00 2024-08-13 00:00:00 Outpatient LASHA BETANCOURT [id number] [facility] 2024-08-12 09:10:00 2024-08-12 09:10:00 Outpatient KELLEE JONA CASH [id number] [facility] 2024-08-12 00:00:00 2024-08-12 00:00:00 [facility] [id number] [facility] 2024-07-27 00:00:00 2024-07-27 00:00:00 Outpatient LASHA BETANCOURT [id number] [facility] 2024-07-25 00:00:00 2024-07-25 00:00:00 Outpatient LASHA BETANCOURT [id number] [facility] 2024-07-15 09:20:00 2024-07-15 09:20:00 Outpatient KELLEEGABRIELGAYATRI CASH [id number] [facility] 2024-07-15 08:40:00 2024-07-15 08:40:00 Outpatient KENZIE CASH [id number] [facility] 2024-07-15 00:00:00 2024-07-15 00:00:00 Outpatient KELLEE JONA CASH [id number] [facility] 2024-07-11 00:00:00 2024-07-11 00:00:00 Outpatient JONA GOODSON [id number] [facility] 2024-07-04 10:30:00 2024-07-04 10:30:00 Outpatient LASHA BETANCOURT [id number] [facility] 2022-05-10 11:00:00 2022-05-10 11:00:00 Outpatient CHAIM JASSO [facility] [id number] Melita [facility] Program Results Test Description Test Time Test Comments Results Result Co mments Source [facility] [id number] 16:01:43* Test Item Value Reference Range Interpretation Comme nts Height (test code = 5554949635) 72 in Weight (test code = 0281531652) 204 lbs Systolic BP (test code = 1151222557) 143 mmHg Diastolic BP (test code = 8747312127) 76 mmHg Heart Rate (test code = 6268086541) 84 bpm BSA (test code = 7351872805) 2.15 m2 LVOT diameter (test code = 9738060893) 2.17 cm LVOT area (test code = 2795366843) 3.70 cm2 Ao root diam (test code = 4252447274) 3.20 cm Aortic root (test code = 6856761013) 3.2 cm Ao root annulus (test code = 5661923112) 3.2 cm LA size (test code = 6124332987) 4.5 cm LVIDD (test code = 5321987309) 5.80 cm Left Ventricular End Diastolic Volume by Teichholz Method (test code = 8822401) 166.3 mL IVS (test code = 9694727418) 0.90 cm Interventricular Septum Diastolic Thickness by 2D (test code = 8634776) 0.90 cm LVPWD (test code = 5783114587) 0.76 cm PW (test code = 6802305249) 0.76 cm 0.6-1.1 EF(Teich) (test code = 8054978935) 51.60 % LVIDS (test code = 5753624910) 4.20 cm Left Ventricular End Systolic Volume by Teichholz Method (test code = 7380879) 80.6 mL FS (test code = 9251297494) 27 % EF - 2D (test code = 11723461) 51.60 % LAV(MOD-sp4) (test code = 7269929238) 56.30 mL MV Peak E Jordan (test code = 0677465090) 96.7 cm/s MV Peak A Jordan (test code = 3336026740) 143.4 cm/s E/A ratio (test code = 9682125870) 0.67 ratio E wave decelartion time (test code = 4061427354) 0.19 s MV E/e' septal (test code = 9263805541) 7.8 cm/s Tapse (test code = 2573636910) 2.6 cm LVOT stroke volume (test code = 1964747037) 86.90 cm3 LVOT peak jordan (test code = 6605871296) 106.9 cm/s LVOT mn grad (test code = 0748120983) 2.2 mmHg AV LVOT peak gradient (test code = 3671116365) 4.6 mmHg LVOT peak VTI (test code = 2401512796) 23.6 cm LV V1 mean (test code = 5895088530) 68.40 cm/s Aortic valve mean velocity (test code = 1310220442) 123.0 cm/s Ao peak jordan (test code = 9237089431) 175.0 cm/s Ao VTI (test code = 4844272512) 36.8 cm AV area by cont VTI (test code = 7327544070) 2.4 cm2 AV area peak jordan (test code = 3528961518) 2.3 cm2 Ao max PG (test code = 6991850980) 12.20 mm[Hg] AV peak gradient (test code = 2239849890) 12.2 mmHg AV valve area (test code = 0076400860) 2.36 cm2 AV mean gradient (test code = 2637411440) 6.6 mmHg LA Volume Index (BP) (test code = 9760930863) 30.1 mL/m2 LA volume (BP) (test code = 3302056902) 64.6 mL LAV(MOD-sp2) (test code = 6330541004) 72.70 mL TASV (test code = 5177566023) 15.3 cm/s A4C EF (test code = 7001959872) 48.90 % EF(sp4-el) (test code = 9340805869) 48.30 % SV(MOD-sp4) (test code = 9823332763) 84.40 mL SV(sp4-el) (test code = 9679191368) 87.60 mL LV Diastolic Volume (BP) (test code = 6142768752) 147.7 mL A2C EF (test code = 6380766887) 58.70 % EF(MOD-bp) (test code = 9999981817) 54.30 % EF(sp2-el) (test code = 4622688861) 60.30 % LV Systolic Volume (BP) (test code = 1458452356) 67.5 mL SV(MOD-bp) (test code = 2637759987) 80.20 mL SV(MOD-sp2) (test code = 8793274752) 74.10 mL EF (test code = 3862932987) 54 Left Ventricular Stroke Volume by 2-D Biplane-MOD (test code = 6100272) 80.2 mL LV Diastolic Volume Index (BP) (test code = 5398100004) 68.7 mL/m2 LV Systolic Volume Index (BP) (test code = 3869099479) 30.6 mL/m2 Radiology Study observation (narrative) (test code = 48791-7) SUSHMA (test code = SUSHMA) ?Left?Ventricle: Left ventricle size is normal. Normal wall thickness. Septal Wall motion is normal. Low normal systolic function with a visually estimated EF of 50 - 55%. EF by 2D Bowman biplane is 54%. Normal diastolic function. ?Left?Atrium: Left atrium size is normal. Left atrium volume index is 30.1 mL/m2. ?Tricuspid?Valve: Trace transvalvular regurgitation. Insufficient tricuspid regurgitation jet to estimate RVSP . Left VentricleLeft ventricle size is normal. Normal wall thickness. Septal Wall motion is normal. Low normal systolic function with a visually estimated EF of 50 - 55%. EF by 2D Bowman biplane is 54%. Normal diastolic function.Right VentricleRight ventricle size is normal. Normal systolic function. TAPSE is 2.6 cm. TDI-derived tricuspid annular systolic velocity (TDI S') is 15.3 cm/s.Left AtriumLeft atrium size is normal. Left atrium volume index is 30.1 mL/m2.Right AtriumRight atrium size is normal.IVC/SVCIVC diameter is less than or equal to 21 mm and decreases greater than 50% during inspiration; therefore the estimated right atrial pressure is normal (~0-5 mmHg).Mitral ValveMild posterior mitral annular calcification. Trace transvalvular regurgitation. No stenosis.Tricuspid ValveTricuspid valve structure is normal. Trace transvalvular regurgitation. Insufficient tricuspid regurgitation jet to estimate RVSP . No stenosis.Aortic ValveTricuspid. Mildly thickened cusps. Mildly calcified cusps. Trace transvalvular regurgitation. No evidence of aortic stenosis.Pulmonic ValveNot well visualized. Mild transvalvular regurgitation. No stenosis.Ascending AortaNormal sized aortic root.PericardiumThe pericardium is normal. No pericardial effusion.Study DetailsStudy quality experienced technical difficulty. A complete echocardiogram was performed using 2D, color flow Doppler and spectral Doppler. The apical, parasternal, subcostal and suprasternal views were obtained. 3 mL of Optison ultrasound enhancing agent used. Patient exhibited sinus rhythm. [facility] 13:23:43* Test Item Value Reference Range Interpretation Comme [facility] LIPASE (test code = 8833117157) 83 U/L 0-220 Lab Interpretation (test cod e = 69846-5) Normal [facility] (AUT[facility]ATED)2025-02-05 13:18:13* Test Item Value Reference Range Interpretation Comme [facility] POCT GLU (test code = 6756683433) 91 mg/dL 70-110 Lab Interpretation (test cod e = 04270-3) Normal [facility] CenterFree [id number] 03:35:29* Test Item Value Reference Range Interpretation Comme [facility] FREE T4 (test code = 3817365154) 1.12 ng/dL 0.78-2.20 Lab Interpretation (test cod e = 51571-6) Normal [facility] Chest pulmonary [id number] 03:21:36Chest CTA Indication: PE suspected, high pretest prob Technique: Arterial phase post-contrast CT axial images of the chest wereobtained. Standard and MIP coronal and sagittal reformats were performed.Three-dimensional reformats were created. Dose reduction techniques wereused (ALARA). Comparison: ?None. RL: Ordering Clinician: SALAZAR HOOVER Technical Quality: Adequate Findings:Lines/Devices: None. Nodes: Subcentimeter mediastinal lymph nodes (short axis) are below sizecriteria. Heart: Normal size. Aorta: No aortic aneurysm. Upper Abdomen: Unremarkable. Pulmonary Arteries: ?No pulmonaryemboli. Pulmonary: No consolidation or effusion. Bones: No acute fracture. Additional Findings: None.[facility] CenterThyroid Stimulating Hormone 2025-02-05 03:07:25* Test Item Value Reference Range Interpretation Comme nts TSH (test code = 6020282031) 0.75 0.45-4.70 Biotin has been reported to cause a negative bias, interpret results relative to patient's use of biotin. Lab Interpretation (test code = 58186-6) Normal [facility] CenterEthanol2025-04-10 02:30:10 ALCOHOL<10mg/dL02/04/2025 9:30 PM [facility]<10 [id number] Toxic>100 Depression of BINDER SORTER>400 Fatalities ReportedUnSaint [facility]'s [facility] CenterTROPONIN [id number] 02:20:22* Test Item Value Reference Range Interpretation Comme nts TROPONIN I (test code = 4614656588) 0.003 ng/mL <=0.034 SUSHMA (test code = SUSHMA) Reference (Normal) Range (defined by the 99th percentile reference limit): <= 0.034 ng/mL Note: Cardiac troponin begins to rise 3-4 hours after the onset of ischemia. Repeat in 4-6 hours if the sample was drawn within 3-4 hours of the onset of the symptom and found normal. Diagnosis of myocardial injury is made with acute changes in cTn concentrations with at least one serial sample above the 99th percentile upper reference limit (URL), taken together with the patient's clinical presentation. Biotin has been reported to cause a negative bias, interpret results relative to patient's use of biotin. Lab Interpretation (test code = 95537-5) Normal [facility] CenterN-TERMINAL [id number] 02:17:41* Test Item Value Reference Range Interpretation Comme nts NT-proBNP (test code = 30248-6) 35 pg/mL <=125 Lab Interpretation (test cod e = 56027-9) Normal [facility] CenterCOMP. METABOLIC PANEL (52690)2025-02-05 02:08:42* Test Item Value Reference Range Interpretation Comme nts NA (test code = 7330358186) 135 mmol/L 135-145 K (test code = 4600490051) 3.5 mmol/L 3.5-5.0 CL (test code = 7380612157) 98 mmol/L 98-108 CO2 TOTAL (test code = 5309446332) 29 mmol/L 23-31 AGAP (test code = 4980050280) 8 2-16 BUN (test code = 9513894884) 14 mg/dL 7-23 GLUCOSE (test code = 7200561653) 245 mg/dL 70-110 H CREATININE (test code = 2160-0) 0.87 mg/dL 0.60-1.25 TOTAL BILI (test code = 3479476011) 0.4 mg/dL 0.1-1.1 CALCIUM (test code = 2324028158) 8.9 mg/dL 8.6-10.6 T PROTEIN (test code = 0451345715) 7.6 g/dL 6.3-8.2 ALBUMIN (test code = 1011527980) 4.2 g/dL 3.5-5.0 ALK PHOS (test code = 4678098122) 139 U/L 34-122 H ALTv (test code = 1742-6) 32 U/L 5-50 AST(SGOT) (test code = 4754114767) 27 U/L 13-40 eGFR (test code = 75308-8) 97.6 mL/min/1.73m2 CKD-EPI eGFR (2020). Assuming creatinine has been stable day-to-day for at least three months, the eGFR indicates Category G1 (>= 90 mL/min/1.73 m2) Lab Interpretation (test code = 48515-5) [facility]normal [facility]:08:42* Test Item Value Reference Range Interpretation Comme nts MAGNESIUM (test code = 9953493675) 1.7 mg/dL 1.7-2.4 Lab Interpretation (test cod e = 24912-2) Normal [facility]Creatine [id number] 02:08:21* Test Item Value Reference Range Interpretation Comme nts CK (test code = 8090965952) 81 U/L 33-194 Lab Interpretation (test cod e = 30758-0) Normal [facility] WITH [id number] 01:56:19* Test Item Value Reference Range Interpretation Comme nts WBC (test code = 6690-2) 11.03 4.20-10.70 H RBC (test code = 789-8) 4.36 4.26-5.52 HGB (test code = 718-7) 13.5 g/dL 12.2-16.4 HCT (test code = 4544-3) 40.0 % 38.4-49.3 MCV (test code = 787-2) 91.7 fL 81.7-95.6 MCH (test code = 785-6) 31.0 pg 26.1-32.7 MCHC (test code = 786-4) 33.8 g/dL 31.2-35.0 RDW-SD (test code = 52807-7) 43.8 fL 38.5-51.6 RDW-CV (test code = 788-0) 13.0 % 12.1-15.4 PLT (test code = 777-3) 176 150-328 MPV (test code = 11674-3) 10.2 fL 9.8-13.0 NRBC/100 WBC (test code = 0175937502) 0.0 0.0-10.0 NRBC x10^3 (test code = 5727199632) See_Comment [Automated messa ge] The system which generated this result transmitted reference range: 10*3/?L. The reference range was not used to interpret this result as normal/abnormal. GRAN MAT (NEUT) % (test code = 770-8) 75.7 % IMM GRAN % (test code = 3430096930) 0.30 % LYMPH % (test code = 736-9) 18.5 % MONO % (test code = 5905-5) 4.8 % EOS % (test code = 713-8) 0.3 % BASO % (test code = 706-2) 0.4 % GRAN MAT x10^3(ANC) (test code = 3645916973) 8.36 10*3/uL 1.99-6.95 H IMM GRAN x10^3 (test code = 4541377695) 0.03 10*3/uL 0.00-0.06 LYMPH x10^3 (test code = 731-0) 2.04 10*3/uL 1.09-3.23 MONO x10^3 (test code = 742-7) 0.53 10*3/uL 0.36-1.02 EOS x10^3 (test code = 711-2) 0.03 10*3/uL 0.06-0.53 L BASO x10^3 (test code = 704-7) 0.04 10*3/uL 0.01-0.09 Lab Interpretation (test code = 49875-2) [facility]normal [facility] (AUT[facility]ATED)2025-02-05 01:37:44* Test Item Value Reference Range Interpretation Comme [facility] POCT GLU (test code = 8164546049) 202 mg/dL 70-110 H Lab Interpretation (test cod e = 59941-9) Abnormal [facility] CenterHEMOGLOBIN [id number] 00:00:00* Test Item Value Reference Range Interpretation Comme [facility] HEMOGLOBIN A1c (test code = 4548-4) 6.6 %oftotalHgb Filemon Razo AustinCBC (INCLUDES DIFF/PLT)2025-01-17 00:00:00* Test Item Value Reference Range Interpretation Comme [facility] WHITE BLOOD CELL COUNT (test code = [...] cells/uL ABSOLUTE BAND NEUTROPHILS (test code = 20917-9) DNR cells/uL ABSOLUTE METAMYELOCYTES (natacha t code = 36378-0) DNR cells/uL ABSOLUTE MYELOCYTES (test code = 51589-1) DNR cells/uL ABSOLUTE PROMYELOCYTES (test code = 48986-5) DNR cells/uL ABSOLUTE LYMPHOCYTES (test code = 731-0) 3454 cells/uL ABSOLUTE MONOCYTES (test cod e = 742-7) 687 cells/uL ABSOLUTE EOSINOPHILS (test code = 711-2) 278 cells/uL ABSOLUTE BASOPHILS (test cod e = 704-7) 26 cells/uL ABSOLUTE BLASTS (test code = 95376-7) DNR cells/uL ABSOLUTE NUCLEATED RBC (test code = 99269-4) DNR cells/uL NEUTROPHILS (test code = 770-8) 48.9 % BAND NEUTROPHILS (test code = 764-1) DNR % METAMYELOCYTES (test code = 740-1) DNR % MYELOCYTES (test code = 749-2) DNR % PROMYELOCYTES (test code = 783-1) DNR % LYMPHOCYTES (test code = 736-9) 39.7 % REACTIVE LYMPHOCYTES (test code = 73319-7) DNR % MONOCYTES (test code = 5905-5) 7.9 % EOSINOPHILS (test code = 713-8) 3.2 % BASOPHILS (test code = 706-2) 0.3 % BLASTS (test code = 709-6) DNR % NUCLEATED RBC (test code = 68896-2) DNR /100WBC COMMENT(S) (test code = 8251-1) DNR Filemon Razo MatheusCOMPREHENSIVE METABOLIC [id number] 00:00:00* Test Item Value Reference Range Interpretation Comme nts GLUCOSE (test code = 2345-7) 101 mg/dL UREA NITROGEN (BUN) (test code = 3094-0) 20 mg/dL CREATININE (test code = 2160-0) 0.94 mg/dL EGFR (test code = 80245-3) 92 mL/min/1.73m2 BUN/CREATININE RATIO (test code = 3097-3) SEE NOTE: (calc) SODIUM (test code = 2951-2) 139 mmol/L POTASSIUM (test code = 2823-3) 4.6 mmol/L CHLORIDE (test code = 2075-0) 99 mmol/L CARBON DIOXIDE (test code = 8-9) 36 mmol/L CALCIUM (test code = 34682-5) 9.3 mg/dL PROTEIN, TOTAL (test code = 2885-2) 7.1 g/dL ALBUMIN (test code = 1751-7) 4.1 g/dL GLOBULIN (test code = 62689-2) 3.0 g/dL(calc) ALBUMIN/GLOBULIN RATIO (test code = 1759-0) 1.4 (calc) BILIRUBIN, TOTAL (test code = 1975-2) 0.4 mg/dL ALKALINE PHOSPHATASE (test code = 6768-6) 119 U/L AST (test code = 1920-8) 21 U/L ALT (test code = 1742-6) 24 U/L Filemon JarvisLIPID [id number] 00:00:00* Test Item Value Reference Range Interpretation Comme [facility] CHOLESTEROL, TOTAL (test cod e = 3-3) 179 mg/dL HDL CHOLESTEROL (test code = 2085-9) 43 mg/dL TRIGLYCERIDES (test code = 2571-8) 114 mg/dL LDL-CHOLESTEROL (test code = 43625-0) 114 mg/dL(calc) CHOL/HDLC RATIO (test code = 9830-1) 4.2 (calc) NON HDL CHOLESTEROL (test code = 94022-4) 136 mg/dL(calc) Filemon JarvisHEMOGLOBIN [id number] 00:00:00* Test Item Value Reference Range Interpretation Comme [facility] HEMOGLOBIN A1c (test code = 4548-4) 6.6 %oftotalHgb Filemon JarvisCBC (INCLUDES DIFF/PLT)2025-01-17 00:00:00* Test Item Value Reference Range Interpretation Comme [facility] WHITE BLOOD CELL COUNT (test code = [...] cells/uL ABSOLUTE BAND NEUTROPHILS (test code = 10646-8) DNR cells/uL ABSOLUTE METAMYELOCYTES (natacha t code = 25047-6) DNR cells/uL ABSOLUTE MYELOCYTES (test code = 64701-9) DNR cells/uL ABSOLUTE PROMYELOCYTES (test code = 56719-0) DNR cells/uL ABSOLUTE LYMPHOCYTES (test code = 731-0) 3454 cells/uL ABSOLUTE MONOCYTES (test cod e = 742-7) 687 cells/uL ABSOLUTE EOSINOPHILS (test code = 711-2) 278 cells/uL ABSOLUTE BASOPHILS (test cod e = 704-7) 26 cells/uL ABSOLUTE BLASTS (test code = 22911-7) DNR cells/uL ABSOLUTE NUCLEATED RBC (test code = 43645-5) DNR cells/uL NEUTROPHILS (test code = 770-8) 48.9 % BAND NEUTROPHILS (test code = 764-1) DNR % METAMYELOCYTES (test code = 740-1) DNR % MYELOCYTES (test code = 749-2) DNR % PROMYELOCYTES (test code = 783-1) DNR % LYMPHOCYTES (test code = 736-9) 39.7 % REACTIVE LYMPHOCYTES (test code = 48754-9) DNR % MONOCYTES (test code = 5905-5) 7.9 % EOSINOPHILS (test code = 713-8) 3.2 % BASOPHILS (test code = 706-2) 0.3 % BLASTS (test code = 709-6) DNR % NUCLEATED RBC (test code = 38119-6) DNR /100WBC COMMENT(S) (test code = 8251-1) DNR Filemon Razo MatheusCOMPREHENSIVE METABOLIC [id number] 00:00:00* Test Item Value Reference Range Interpretation Comme nts GLUCOSE (test code = 2345-7) 101 mg/dL UREA NITROGEN (BUN) (test code = 3094-0) 20 mg/dL CREATININE (test code = 2160-0) 0.94 mg/dL EGFR (test code = 71536-6) 92 mL/min/1.73m2 BUN/CREATININE RATIO (test code = 3097-3) SEE NOTE: (calc) SODIUM (test code = 2951-2) 139 mmol/L POTASSIUM (test code = 2823-3) 4.6 mmol/L CHLORIDE (test code = 2075-0) 99 mmol/L CARBON DIOXIDE (test code = 2027-9) 36 mmol/L CALCIUM (test code = 05992-8) 9.3 mg/dL PROTEIN, TOTAL (test code = 2885-2) 7.1 g/dL ALBUMIN (test code = 1751-7) 4.1 g/dL GLOBULIN (test code = 92479-3) 3.0 g/dL(calc) ALBUMIN/GLOBULIN RATIO (test code = 1759-0) 1.4 (calc) BILIRUBIN, TOTAL (test code = 1975-2) 0.4 mg/dL ALKALINE PHOSPHATASE (test code = 6768-6) 119 U/L AST (test code = 1920-8) 21 U/L ALT (test code = 1742-6) 24 U/L Filemon Razo MatheusLIPID [id number] 00:00:00* Test Item Value Reference Range Interpretation Comme nts CHOLESTEROL, TOTAL (test cod e = 2093-3) 179 mg/dL HDL CHOLESTEROL (test code = 2085-9) 43 mg/dL TRIGLYCERIDES (test code = 2571-8) 114 mg/dL LDL-CHOLESTEROL (test code = 66615-1) 114 mg/dL(calc) CHOL/HDLC RATIO (test code = 9830-1) 4.2 (calc) NON HDL CHOLESTEROL (test code = 35466-8) 136 mg/dL(calc) Filemon Razo Matheus History and Physical Notes Date/Time Note Provider Source 2025-02-05 00:21:08 RENATA Chan Admit H&P PCP: PATIENT DOES NOT HAVE A PCP Date of Service: 02/05/2025 CHIEF COMPLAINT: Tachycardia HISTORY OF PRESENT ILLNESS Camron Juarez is a 64 year old male with a PMH of Uncontrolled HTN, Prediabetes, HLD who presents for dizziness and fatigue for last 2 weeks. Patient was evaluated for similar complaint at OSH 2 weeks ago. Patient initially evaluated at [facility] where he was found to be in sinus tachycardia on EKG. Patient had extensive workup done with was unremarkable. CBC with mild leukocytosis, no anemia, normal TFT, normal electrolytes, UDS positive for methadone (patient in rehab). Orthostatic were also negative. PE was ruled out by CTPE. Patient admitted for unexplained tachycardia but transferred to [facility] facility at capacity. Of note, Patient had HR 117 with BP 180/100 in 07/22 at PCP office. 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 Dizziness comes on usually when he stands up but pass on its own. This morning, he was working in the garage when he stood up and felt like he was gonna pass out, he laid down and dizziness somewhat got better, given this has been a constant issue he decided to come to ER for further evaluations. Dizziness is explained as feeling of falling down and vision loss with chest palpitation. Whenever he gets dizzy he feels his heart racing and sometimes has chest pressure which gets better as he calms himself down and Hr goes down. Father had cardiomyopathy and in his 40s. Personally, patient without hx of stroke or NH About 8 days ago, he was started on metformin which gave him diarrhea and increased in urination which resolved after stopping metformin 3 days ago. For last week, he has lost his appetite, eating 1 meal a day as he doesn't feel hungry. He currently also complains of deep pain behind his stomach which is chronic in nature but sometimes it get worse. Socially, he used to smoke but about 30 years ago. 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 He is a who used to be in [employer]. He reports history of panic attacks, laterly has been feeling stressed due to financial situation, Never diagnosed with KISHORE or depression, not on any psych medications. Patient denies fever, chills, N/V, Hematochezia, melena, hematemesis, hemoptysis, dysuria, syncope. He does report chronic polyuria with urinary hesitancy on going for several years. Past medical history: has a past medical history of Essential (primary) hypertension, Hyperlipidemia, and Prediabetes. Past surgical history: has a past surgical history that includes open appendectomy. Social history: reports that he has quit smoking. His smoking use included cigarettes. He has never been exposed to tobacco smoke. He has never used smokeless tobacco. He reports that he does not currently use drugs. He reports that he does not drink alcohol. Family history: family history includes Cardiomyopathy in his father. Allergies: No Known Allergies MEDICATIONS reviewed REVIEW OF SYSTEMS See PHYSICAL EXAMINATION Vitals: 02/04/25 2300 02/04/25 2329 02/05/25 0049 02/05/25 0105 BP: (!) 161/94 (!) 166/94 (!) 150/101 BP Location: Left arm Patient Position: Supine Pulse: 112 111 114 Resp: 9 12 20 Temp: 36.7 ?C (98.1 ?F) 35.8 ?C (96.5 ?F) TempSrc: Oral Tympanic SpO2: 99% 98% 98% Weight: Height: 1.829 m (6') General: alert and oriented, no apparent distress, appears dry HEENT: white sclera, eye movements grossly intact, hearing is normal Neck: supple, no masses Lungs: clear to auscultation in all hayes bilaterally, unlabored breathing Cardio: tachycardia, regularly regular, no murmurs or rubs, no carotid bruit Abdomen: soft, diffuse tenderness, no masses palpated, positive bowel sounds Extremities: no clubbing, cyanosis, or edema Skin: no rashes or lesions, good turgor Neuro: no focal deficits LABS - reviewed pertinent labs as below: Labs (last 24 hours): Chemistry CBC LFTs Coags, other 135 98 14 245 (H) 11.03 (H) 13.5 176 AST: 27 ALT: 32 PT: - INR: - 3.5 29 0.87 40.0 AP: 139 (H) T Abhilash: 0.4 PTT: - eGFR: 97.6 Ca: 8.9 % Elisa: 75.7 Prot: 7.6 Alb: 4.2 Lact: - Procal: - M.7 PO4: - ANC: 8.36 (H) pBNP: 35 Trop I: 0.003 IMAGING - reviewed, pertinent results as below: CT Chest pulmonary angiogram Result Date: 02/04/2025 Impression: No pulmonary emboli. No acute abnormalities. : Sinus Tachycardia, no TWI or EDIS CHART REVIEW: pertinent information as below: PCP clinic visit 07/04/24 Vital Sign Reading Time Taken Comments Blood Pressure 180/100 07/04/2024 10:09 AM CDT Pulse 117 07/04/2024 10:09 AM CDT Temperature 36.2 ?C (97.2 ?F) 07/04/2024 10:09 AM CDT Respiratory Rate 16 07/04/2024 10:09 AM CDT Oxygen Saturation 99% 07/04/2024 10:09 AM CDT Inhaled Oxygen Concentration - - Weight 93.9 kg (207 lb) 07/04/2024 10:09 AM CDT Height 182.9 cm (6') 07/04/2024 10:09 AM CDT Body Mass Index 28.07 07/04/2024 10:09 AM CDT Hypertension, unspecified type - Amlodipine Besylate (Norvasc) 10 MG oral Tablet; Take 1 tablet (10 mg total) by mouth daily. Dispense: 30 tablet; Refill: 0 -chronic. [facility] Now off. -Uncontrolled. Likely pain contributing with underlying HTN. -start amlodipine as he is short on time for est care physical visit and can begin comfortably without lab monitoring -advised to make f/u appointment to est care and manage chronic problems ASSESSMENT/PLAN Camron Juarez is a 64 year old male with PMH as listed above, admitted to the hospital with: Dizziness Sinus Tachycardia Reported history of Panic Attacks Uncontrolled HTN HLD Prediabetes Patient presenting with 2 weeks of dizziness found to have sinus tachycardia. Workup unrevealing including CBC, CMP, TFT, CTPE. UDS positive for methadone. Patient denies use of any illicit drug use. Recent use of metformin with diarrhea and loss of appetite, diarrhea currently resolved but patient appears dry. Orthostatic negative. No fever or signs of infection. Patient currently with abdominal pain, will check lipase and abdominal US to r/o AAA given smoking history and given supportive treatment with fluids - Admit to [facility] - EKG - Telemetry - NS bolus - Lipase - Abdominal US for AAA screen - can consider CTAP if abdominal pain persistent - Pain consult for methadone prescription - Pain control: bentyl, robaxin, tylenol - Patient Jehovah Witness, doesn't want any blood products Pain ControlledTylenol Prophylaxis: DVT- enoxaparin Stress Ulcer: no indication for prophylaxis Code Status: addressed: Full Code Bowel Regimen: n/a Destiney You DO, PGY3 Internal Medicine Department Associated attestation - Renee Mcpherson MD - 02/05/2025 2:43 PM CDT I personally examined the patient on the date as stated in the note and agree with the resident's note. I actively participated in the decision-making process. Please see the resident's note for additional details. Renee Mcpherson MD, MS, FACC, FASE Event Marketing Representative Department of Internal Medicine Division of Cardiovascular Medicine [facility] Notes Date/Time Note Provider Source 2025-02-05 12:12:49 Problem: Falls, Risk of Goal: Absence of falls Outcome: Progressing as expected Problem: Pain Goal: Control of pain at or below patient's documented comfort goal Outcome: Progressing as expected Goal: Reduction in pain sensation Outcome: Progressing as expected Problem: Discharge Planning Goal: Adequate for discharge Outcome: Progressing as expected Problem: Fluid Volume - Imbalanced Goal: Absence of imbalanced fluid volume signs and symptoms Outcome: Progressing as expected Cindi Bradshaw RN [facility] 2025-02-05 05:17:48 Problem: Falls, Risk of Goal: Absence of falls Outcome: Progressing as expected Problem: Pain Goal: Control of pain at or below patient's documented comfort goal Outcome: Progressing as expected Goal: Reduction in pain sensation Outcome: Progressing as expected Problem: Discharge Planning Goal: Adequate for discharge Outcome: Progressing as expected Problem: Fluid Volume - Imbalanced Goal: Absence of imbalanced fluid volume signs and symptoms Outcome: Progressing as expected Merissa Perez RN [facility] 2025-02-04 23:31:12 Patient transferred to [facility] for diagnosis of Dizziness, Palpitations, Tachycardia Patient agrees to transfer/admit plan and verbalized understanding of plan of care, family aware of plan Patient awake alert, oriented, resp reg unlabored, skin w/d PIV patent, no s/s infiltration noted, No adverse reaction to medications given while in ED. Report given to [facility] personnel Rosendo Mazariegos RN [facility] 2025-02-04 23:02:48 Nurse Report Report given to LOUISE Craven. Chief complaint, assessment findings, and orders reviewed. TRACEE GASTELUM RN T [facility] 2025-02-04 22:58:39 Nurse Report Report given to LOUISE Robbins. Chief complaint, assessment findings, infusion verify and orders reviewed. TRACEE GASTELUM RN [facility] 2025-02-04 21:03:49 Images from the original note were not included. Summary: orthostatic vitals 02/04/25205502/04/25205602/04/252058 Orthostatic Vitals BP 160/84 164/84 159/88 BP Location Left arm Left arm Left arm Position Lying Sitting Standing Pulse 133 137 145 T [facility] 2025-02-04 21:03:13 Summary: orthostatic vitals 02/04/25205502/04/25205602/04/252058 Orthostatic Vitals BP 160/84 164/84 159/88 BP Location Left arm Left arm Left arm Position Lying Sitting Standing Pulse 133 137 145 Tracee Gastelum RN [facility] 2025-02-04 20:20:51 C/o feeling dizzy, weak, and lightheaded over the last 2 weeks. Seen at [facility] ER last week for same issue. Hx: htn, prediabetes Mervat Tineo RN [facility] Filemon Bansal [facility]2025-03-20 00:00:00 Filemon Bansal [facility]2024-09-17 08:58:55 Chief Complaint Patient presents with Consultation Right hell and tendon damage. He states has pain for many years but about a month ago he fell of a ladder. Went To [facility] they suggested him to see a Specialist. Level of pain 06/07 Akua Pizano [facility] Lindsay[facility]redaSt[facility] [id number] 10:11:08 Chief Complaint Patient presents with Establish Care Referral Right foot injury , x 1 month ago Birdie Nguyen CMA II [facility]
[2025-02-07] MEDS ORDERED: NA CHLORIDE 0.9% 500 ML ONE (22:19)
[2025-02-07 22:39] LABS: PT Prothrombin Time 10.8 SECONDS (10-13.0); Protime INR 0.94
[2025-02-07 22:40] LABS: Absolute Lymphocytes (CBC) 2.4 K/uL (0.7-4.9); Absolute Monocytes 0.6 K/uL (0.1-1.3); Absolute Neutrophil 7.1 K/uL (1.8-8.0); Basophils % 0.4 % (0-1.3); Eosinophils % 0.4 % (0-4.4); Hematocrit 37.5 % (39.6-49.0); Hemoglobin 13.1 g/dL (13.6-17.9); Lymphocytes % 23.7 % (15.3-44.8); MCH 30.7 pg (27.0-35.0); MCHC 34.9 g/dL (32.0-36.0); MCV 88.1 fL (80-100); MPV 7.8 fL (7.6-11.3); Monocytes % 5.8 % (3.3-12.3); Neutrophils % 69.7 % (41.7-73.7); Platelets 164 thou/uL (152-406); RBC Red Blood Cell Count 4.26 M/uL (4.33-5.43)
[2025-02-07 22:49] LABS: Anion Gap 7.8 mEq/L (5.0-15.0); Potassium 3.8 mEq/L (3.5-5.1)
[2025-02-07 22:50] LABS: Albumin 3.5 g/dL (3.4-5.0); Albumin/Globulin Ratio 0.9 (1.1-1.8); Bilirubin Direct 0.2 mg/dL (0-0.2); Bilirubin Indirect, Calculated 0.1 mg/dL (0.2-0.8); Bilirubin Total 0.3 mg/dL (0.2-1.0); Globulin 3.7 g/dL (2.3-3.5); Magnesium 1.9 mg/dL (1.6-2.4); Protein, Total 7.2 g/dL (6.4-8.2); Troponin High Sensitivity 10.5 pg/mL (<58.9)
--- NOTE | 2025-02-07 23:57 | RAD REPORT ---
EXAM DESCRIPTION: Chest Single View CLINICAL HISTORY: 4 years Male, CHEST PAIN Comparison: Chest radiograph dated 01/30/2025 IMPRESSION: No focal lung consolidation. No pleural effusion. No pneumothorax. Cardiomediastinal silhouette is within normal limits. No acute osseous abnormality. Electronically signed by: Addy Anne DO 02/07/2025 11:44 PM CDT RP 9 Due to temporary technical issues with the PACS/f4samurai reporting system, reports are being [place] d by the in-house radiologist without review as a courtesy to ensure prompt reporting the interpreting radiologist is fully responsible for the content of the report. Transcribed Date/Time: 02/07/2025 11:57 PM
--- NOTE | 2025-02-07 23:59 | ER ---
Nurse's Notes [facility] Name: Simeon Juarez Age: 64 yrs Sex: Male : 1960 Arrival Date: 02/07/2025 Time: 22:15 Bed 18 Private MD: Diagnosis: Chest pressure, dehydration Presentation: 02/07 22:22 Chief complaint: Patient states: I was outside mowing and developed chest tightness and bm8 got dizzy. this was at 1900 tonight. Coronavirus screen: Vaccine status: Patient reports receiving the 2nd dose of the covid vaccine. At this time, the client does not indicate any symptoms associated with coronavirus-19. Ebola Screen: Patient negative for fever greater than or equal to 101.5 degrees Fahrenheit, and additional compatible Ebola Virus Disease symptoms Patient denies exposure to infectious person. Patient denies travel to an Ebola-affected area in the 21 days before illness onset. No symptoms or risks identified at this time. Initial Sepsis Screen: Does the patient meet any 2 criteria? No. Patient's initial sepsis screen is negative. Does the patient have a suspected source of infection? No. Patient's initial sepsis screen is negative. Risk Assessment: Do you want to hurt yourself or someone else? Patient reports no desire to harm self or others. Onset of symptoms was February 07, 2025 at 19:00. 22:22 Method Of Arrival: EMS: [facility] bm8 22:22 Acuity: MED 2 bm8 22:29 Care prior to arrival: Medication(s) given: ASA, 81 mg, x 4, zofran 4 mg, NITRO SL bm8 0.4MG IV initiated. 18 GA, in the right forearm, Glucose check: 109. Triage Assessment: 22:24 General: Appears in no apparent distress. comfortable, Behavior is calm, cooperative, bm8 appropriate for age. Pain: Complains of pain in chest Pain currently is 5 out of 10 on a pain scale. Quality of pain is described as TIGHTNESS. EENT: No deficits noted. No signs and/or symptoms were reported regarding the EENT system. Neuro: No deficits noted. Level of Consciousness is awake, alert, obeys commands, Oriented to person, place, time, situation, Appropriate for age. Neuro: Reports dizziness, since 1900. Cardiovascular: Reports chest pain, lightheadedness. Respiratory: Airway is patent Trachea midline Respiratory effort is even, unlabored, Respiratory pattern is regular, symmetrical, Breath sounds are clear bilaterally. GI: No signs and/or symptoms were reported involving the gastrointestinal system. : No signs and/or symptoms were reported regarding the genitourinary system. Derm: No signs and/or symptoms reported regarding the dermatologic system. Musculoskeletal: No signs and/or symptoms reported regarding the musculoskeletal system. Historical: - Allergies: :24 No Known Allergies; bm8 - Home Meds: 22:24 lisinopril 20 mg Oral tablet [Active]; methadone 110 mg Oral daily [Active]; bm8 - PMHx: 22:24 Hypertensive disorder; Substance Abuse; HLD (Substance Abuse); bm8 - PSHx: 22:24 Appendectomy; bm8 - Immunization history:: Adult Immunizations up to date. - Infectious Disease History:: Denies. - Social history:: Smoking status: Patient denies any tobacco usage or history of. Screenin:[address] [facility] ED Fall Risk Assessment (Adult) History of falling in the last 3 months, bm8 including since admission No falls in past 3 months (0 pts) Confusion or Disorientation Intoxicated or Sedated No (0 pts) Impaired Gait No (0 pts) Mobility Assist Device Used No (0 pt) Altered Elimination No (0 pt) Score/Fall Risk Level 0 - 2 = Low Risk Oriented to surroundings, Maintained a safe environment, Educated pt \T\ family on fall prevention, incl call for assistance when getting out of bed, Provided non-skid footwear, Hourly rounding (assess needs \T\ fall precautionary measures) done, Used ambulatory aids as needed (educated on \T\ assisted with), Used gait belt as appropriate. Abuse screen: Denies threats or abuse. Nutritional screening: No deficits noted. Tuberculosis screening: No symptoms or risk factors identified. Assessment: 22:33 Reassessment: SEE TRIAGE ASSESSMENT. bm8 02/08 00:14 Reassessment: Patient appears in no apparent distress at this time. Patient and/or bm8 family updated on plan of care and expected duration. Pain level reassessed. Patient is alert, oriented x 3, equal unlabored respirations, skin warm/dry/pink. Patient denies pain at this time. Patient states feeling better. Patient states symptoms have improved. Vital Signs: 02/07 22:22 BP 156 / 95; Pulse 108; Resp 20; Temp 98.9; Pulse Ox 97% ; Weight 92.08 kg; Height 6 bm8 ft. 0 in. ; Pain 5/10; 02/08 00:14 BP 135 / 73; Pulse 85; Resp 18; Temp 98.8; Pulse Ox 96% ; Pain 0/10; bm8 02/07 22:22 Body Mass Index 27.53 (92.08 kg, 182.88 cm) bm8 02/07 22:22 Pain Scale: Adult bm8 02/08 00:14 Pain Scale: Adult bm8 [place] Coma Score: 02/07 22:33 Eye Response: spontaneous(4). Motor Response: obeys commands(6). Verbal Response: bm8 oriented(5). Total: 15. 02/08 00:14 Eye Response: spontaneous(4). Motor Response: obeys commands(6). Verbal Response: bm8 oriented(5). Total: 15. ED Course: 02/07 22:15 Patient arrived in ED. jj6 22:16 Dontae Buck MD is Attending Physician. sp3 22:20 EKG done, by office technology professor. af3 22:21 Guillermo Cervantes, RN is Primary Nurse. bm8 22:22 Basic Metabolic Panel Sent. hw 22:22 CBC with Diff Sent. hw 22:22 LFT's Sent. hw 22:22 Magnesium Sent. hw 22:22 NT PRO-BNP Sent. hw 22:23 PT-INR Sent. hw 22:24 Triage completed. bm8 22:24 Arm band placed on right wrist. bm8 22:30 No provider procedures requiring assistance completed. Initial lab(s) drawn, by ED bm8 staff, sent to lab. Maintain EMS IV. Dressing intact. Good blood return noted. Site clean \T\ dry. Gauge \T\ site: 18G RFA. Flushed right forearm with 5 ml normal saline. Patient maintains SpO2 saturation greater than 95% on room air. 22:33 Patient has correct armband on for positive identification. Placed in gown. Bed in low bm8 position. Call light in reach. Side rails up X2. Client placed on continuous cardiac and pulse oximetry monitoring. NIBP monitoring applied. quality assurance monitor final on. Pulse ox on. NIBP on. Door closed. Noise minimized. Warm blanket given. Pillow given. Verbal reassurance given. Head of bed elevated. 22:46 XRAY Chest (1 view) In Process Unspecified. EDMS 02/08 00:14 IV discontinued, intact, bleeding controlled, No redness/swelling at site. Pressure bm8 dressing applied. 00:14 Provided Education on: post er care. bm8 Administered Medications: 02/07 22:21 Drug: Nitroglycerin Sublingual 0.4 mg Sublingual once Route: Sublingual; bm8 02/08 00:15 Follow up: Response: No adverse reaction bm8 02/07 22:21 Drug: NS 0.9% IV 500 ml 500 ml IV at 1 bolus once; to be given as a bolus over 30 bm8 minutes Volume: 500 ml; Route: IV; Rate: 1 bolus; Site: right forearm; 02/08 00:15 Follow up: Response: No adverse reaction; IV Status: Completed infusion bm8 Medication: 02/07 22:33 VIS not applicable for this client. bm8 Outcome: 23:59 Discharge ordered by sp3 02/08 00:14 Discharged to home ambulatory, bm8 Condition: stable Discharge instructions given to patient, Instructed on discharge instructions, follow up and referral plans. Demonstrated understanding of instructions, follow-up care, 00:22 Patient left the ED. bm8 Signatures: Dispatcher [employer] EDGA Dontae Buck MD MD sp3 Brigid [email or web address] Guillermo Cervantes, RN RN bm8 Lizz Farris3 Althea Leal Corrections: (The following items were deleted from the chart) 00:17 00:14 Discharge instructions given to patient, Instructed on discharge instructions, bm8 follow up and referral plans. Demonstrated understanding of instructions, follow-up care, Prescriptions given X 1, bm8
--- NOTE | 2025-02-07 23:59 | EDPHYS ---
Physician Documentation [facility] Name: Simeon Juarez Age: 64 yrs Sex: Male : 1960 Arrival Date: 02/07/2025 Time: 22:15 Bed 18 Private MD: ED Physician Dontae Buck HPI: 02/07 22:35 This 64 yrs old Male presents to ER via EMS with complaints of Chest Pain, sp3 Dizziness, Nausea. 22:35 64-year-old male with history of hypertension, prior substance abuse currently on sp3 methadone, hyperlipidemia presents to the ED with chief complaint chest pain and dehydration symptoms after mowing grass. Patient does state that he was hydrating himself however he was outside for quite some time exerting himself. Mild near syncope and dizziness as well. EMS found patient alert and oriented in no acute distress however tachycardic in the 120s with mild chest tightness and administered nitroglycerin sublingual 1 tablet. Patient is improved. Patient denies chest pain only states he has some mild pressure. He was recently admitted to [facility] for similar symptoms in the past and he was discharged just over 1 week ago. He currently denies headache, fever, URI symptoms, cough, shortness of breath, abdominal pain with nausea, vomit, diarrhea, rash, bleeding, or any other signs or symptoms on ROS at this time.. Historical: - Allergies: 22:24 No Known Allergies; bm8 - Home Meds: 22:24 lisinopril 20 mg Oral tablet [Active]; methadone 110 mg Oral daily [Active]; bm8 - PMHx: 22:24 Hypertensive disorder; Substance Abuse; HLD (Substance Abuse); bm8 - PSHx: 22:24 Appendectomy; bm8 - Immunization history:: Adult Immunizations up to date. - Infectious Disease History:: Denies. - Social history:: Smoking status: Patient denies any tobacco usage or history of. ROS: 22:37 Constitutional: Negative for fever, chills, and weight loss, Eyes: Negative for injury, sp3 pain, redness, and discharge, ENT: Negative for injury, pain, and discharge, Neck: Negative for injury, pain, and swelling, Respiratory: Negative for shortness of breath, cough, wheezing, and pleuritic chest pain, Abdomen/GI: Negative for abdominal pain, nausea, vomiting, diarrhea, and constipation, Back: Negative for injury and pain, MS/Extremity: Negative for injury and deformity, Skin: Negative for injury, rash, and discoloration, Neuro: Negative for headache, weakness, numbness, tingling, and seizure, Psych: Negative for depression, anxiety, suicide ideation, homicidal ideation, and hallucinations, Allergy/Immunology: Negative for hives, rash, and allergies, Endocrine: Negative for neck swelling, polydipsia, polyuria, polyphagia, and marked weight changes, Hematologic/Lymphatic: Negative for swollen nodes, abnormal bleeding, and unusual bruising, 22:37 All other systems are negative, Exam: 22:37 Constitutional: This is a well developed, well nourished patient who is awake, alert, sp3 and in no acute distress. Head/Face: Normocephalic, atraumatic. Eyes: Pupils equal round and reactive to light, extra-ocular motions intact. Lids and lashes normal. Conjunctiva and sclera are non-icteric and not injected. Cornea within normal limits. Periorbital areas with no swelling, redness, or edema. ENT: Nares patent. No nasal discharge, no septal abnormalities noted. External auditory canals are clear. Oropharynx with no redness, swelling, or masses, exudates, or evidence of obstruction, uvula midline. Mucous membranes moist. Neck: Trachea midline, no thyromegaly or masses palpated, and no cervical lymphadenopathy. Supple, full range of motion without nuchal rigidity, or vertebral point tenderness. No Meningismus. Chest/axilla: Normal chest wall appearance and motion. Nontender with no deformity. No lesions are appreciated. Respiratory: Lungs have equal breath sounds bilaterally, clear to auscultation and percussion. No rales, rhonchi or wheezes noted. No increased work of breathing, no retractions or nasal flaring. Abdomen/GI: Soft, non-tender, with normal bowel sounds. No distension or tympany. No guarding or rebound. No evidence of tenderness throughout. Back: No spinal tenderness. No costovertebral tenderness. Full range of motion. Skin: Warm, dry with normal turgor. Normal color with no rashes, no lesions, and no evidence of cellulitis. MS/ Extremity: Pulses equal, no cyanosis. Neurovascular intact. Full, normal range of motion. Neuro: Awake and alert, GCS 15, oriented to person, place, time, and situation. Cranial nerves II-XII grossly intact. Motor strength 5/5 in all extremities. Sensory grossly intact. Cerebellar exam normal. Normal gait. Psych: Awake, alert, with orientation to person, place and time. Behavior, mood, and affect are within normal limits. 22:37 Cardiovascular: Rate: tachycardic, 22:37 ECG was reviewed by the Attending Physician. EKG demonstrates sinus tachycardia at 108 bpm with normal intervals, normal QRS, normal axis, normal ST/T-segment's without evidence of acute ischemia. Vital Signs: 22:22 BP 156 / 95; Pulse 108; Resp 20; Temp 98.9; Pulse Ox 97% ; Weight 92.08 kg; Height 6 bm8 ft. 0 in. ; Pain 5/10; 02/08 00:14 BP 135 / 73; Pulse 85; Resp 18; Temp 98.8; Pulse Ox 96% ; Pain 0/10; bm8 02/07 22:22 Body Mass Index 27.53 (92.08 kg, 182.88 cm) 8 02/07 22:22 Pain Scale: Adult bm8 02/08 00:14 Pain Scale: Adult bm8 [place] Coma Score: 02/07 22:33 Eye Response: spontaneous(4). Motor Response: obeys commands(6). Verbal Response: bm8 oriented(5). Total: 15. 02/08 00:14 Eye Response: spontaneous(4). Motor Response: obeys commands(6). Verbal Response: bm8 oriented(5). Total: 15. MDM: 02/07 22:16 Medical Screening Exam initiated sp3 22:38 Data reviewed: vital signs, nurses notes, lab test result(s), EKG, radiologic studies. sp3 ED course: 64-year-old male with muscular chest pain after mowing grass coupled with dizziness and dehydration. I am not highly suspicious of acute coronary syndrome, PE, TAD, sepsis, shock or any other critical process. Likely musculoskeletal pain as his pain is inducible if palpating pectoralis muscle and/or moving right upper extremity. Will obtain EKG which is normal other than the tachycardia, general labs including troponin, chest x-ray and administer normal saline. Blood pressure initially elevated and we will administer 1 additional nitro for blood pressure control. Is already at 156/95. Heart rate is also slowing as patient is calming down. If workup negative, we will safely discharge patient home with continued outpatient follow-up to his PCP.. 23:58 ED course: Vital signs significantly improved. Patient is feeling better and has no sp3 symptoms currently. We will safely discharge him home at this time.. 02/07 22:16 Order name: Basic Metabolic Panel; Complete Time: 22:53 3 02/07 22:16 Order name: CBC with Diff; Complete Time: 22:53 3 02/07 22:16 Order name: LFT's; Complete Time: 22:53 3 02/07 22:16 Order name: Magnesium; Complete Time: 22:53 3 02/07 22:16 Order name: NT PRO-BNP; Complete Time: 22:53 3 02/07 22:16 Order name: PT-INR; Complete Time: 22:53 3 02/07 22:16 Order name: Troponin HS; Complete Time: 22:53 3 02/07 22:16 Order name: XRAY Chest (1 view) 3 02/07 22:16 Order name: Cardiac monitoring; Complete Time: 22:19 3 02/07 22:16 Order name: EKG - Nurse/Tech; Complete Time: 22:20 3 02/07 22:16 Order name: IV Saline Lock; Complete Time: 22:20 3 02/07 22:16 Order name: Labs collected and sent; Complete Time: 22:20 3 02/07 22:16 Order name: O2 Per Protocol; Complete Time: 22:20 3 02/07 22:16 Order name: O2 Sat Monitoring; Complete Time: 22:20 sp3 Administered Medications: 22:21 Drug: Nitroglycerin Sublingual 0.4 mg Sublingual once Route: Sublingual; bm8 02/08 00:15 Follow up: Response: No adverse reaction bm8 02/07 22:21 Drug: NS 0.9% IV 500 ml 500 ml IV at 1 bolus once; to be given as a bolus over 30 bm8 minutes Volume: 500 ml; Route: IV; Rate: 1 bolus; Site: right forearm; 02/08 00:15 Follow up: Response: No adverse reaction; IV Status: Completed infusion bm8 Disposition Summary: 02/07/25 23:59 Discharge Ordered Notes: Location: Home sp3 Condition: Stable sp3 Diagnosis - Chest pressure, dehydration sp3 Followup: sp3 - With: Private Physician - When: Upon discharge from the Emergency Department - Reason: Continuance of care Discharge Instructions: - Discharge Summary Sheet sp3 - Nonspecific Chest Pain, Adult sp3 - Dehydration, Adult sp3 Forms: - Medication Reconciliation Form sp3 - Antibiotic Education sp3 - Prescription Opioid Use sp3 - Patient Portal Instructions sp3 - Leadership Thank You Letter sp3 Signatures: Dispatcher [employer] EDMS Dontae Buck MD MD sp3 Guillermo Cervantes, RN RN bm8 Corrections: (The following items were deleted from the chart) 02/07 22:16 22:16 BASIC METABOLIC PANEL+C.LAB.BRZ ordered. EDMS EDMS 22:17 22:16 CBC+H.LAB.BRZ ordered. EDMS EDMS 22:17 22:16 HEPATIC FUNCTION+C.LAB.BRZ ordered. EDMS EDMS 22:17 22:16 MAGNESIUM+C.LAB.BRZ ordered. EDMS EDMS 22:17 22:16 PROBNP+C.LAB.BRZ ordered. EDMS EDMS 22:17 22:16 PROTIME (+INR)+COAG.LAB.BRZ ordered. EDMS EDMS 22:17 22:16 Troponin High Sensitivity+C.LAB.BRZ ordered. EDMS EDMS 22:17 22:17 Chest Single View+RAD.RAD.BRZ ordered. EDMS EDMS
[2025-02-08 00:28] VITALS: BP 135/73; TEMP 98.8; O2SAT 96
--- NOTE | 2025-02-09 10:51 | EKG ---
Test Date: 2025-02-07 Test Time: 22:17:32 Head Tennis Professional: AF MEASUREMENT RESULTS: Intervals: Rate: 108 IN: 174 QRSD: 84 QT: 338 QTc: 452 [place]: P: 49 IN: 174 QRS: 21 T: 30 INTERPRETIVE STATEMENTS: Sinus tachycardia Otherwise normal ECG Compared to ECG 01/30/2025 11:51:50 Sinus rhythm no longer present Ventricular premature complex(es) no longer present Electronically Signed On 02-09-25 10:48:12 CDT by Jay Kendall
== END 2025-02-08 00:22 | disposition home or self-care (01) ==
LOC: ER 22:15
DX: R07.89 Other chest pain (principal); E86.0 Dehydration; I10 Essential (primary) hypertension
CPT/HCPCS: 96361; 93005; 85025; 80048; 36415; 83735; 85610; 80076; 84484; 83880; 71045; 96360; 99285; J7040